=== PATIENT | male | born 1955 | race Caucasian/White ===

== ENCOUNTER 2017-01-17 10:07 | Inpatient (IN) | payer OTHER ==
[~2017-01-17] VITALS: Ht 175.3 cm; Wt 98.9 kg
[2017-01-17] VITALS (7 sets, daily range): BP systolic 96–131; BP diastolic 54–78
--- NOTE | ~2017-01-17 | EKG ---
[place], [place] ELECTROCARDIOGRAM REPORT NAME: TAMMY MYLES UNIT #: [id number] ROOM: 409 DOCTOR: MORALES HERNÁNDEZ MD BIRTHDATE: [birth year] DOS: 01/17/2017 TIME: 10:13 hours. Normal sinus rhythm at 79 beats per minute. The tracing is normal. No previous tracing is available for comparison. MORALES HERNÁNDEZ MD CM:EKGRPT:ELECTROCARDIOGRAM REPORT [id number] MORALES HERNÁNDEZ MD
--- NOTE | ~2017-01-17 | WRIGHTHP ---
[place], [place] PATIENT HISTORY AND PHYSICAL EXAM NAME: TAMMY MYLES [facility] #: [id number] UNIT #: [id number] ROOM: 409 DOCTOR: JOHN BEAVER MD BIRTHDATE: [birth year] DOS: 01/17/2017 HISTORY OF PRESENT ILLNESS: The patient is a 61-year-old gentleman with a past medical history of: 1. Coronary artery disease and a heart catheterization [address] Holman. 2. History of alcohol dependence, stopped 28 years back. 3. History of mixed hyperlipidemia. 4. Nicotine smoke dependence. 5. History of peptic ulcer disease. 6. History of diverticulosis and diverticulitis. 7. History of COPD. 8. Benign essential hypertension. 9. Type 2 diabetes mellitus. 10. Blind in the right eye. 11. History of sleep apnea. 12. Major depression, chronic, recurrent, minor. 13. GERD and esophagitis. The patient presented to [facility] Emergency Department with complaints of left-sided chest pains and some precordial discomfort. The patient's EKG showed no acute changes. There was no radiation of the pain. No nausea or diaphoresis. The patient was evaluated by his lease out man, Dr. Cortez, and he did not recommend any other intervention other than starting him on Imdur 30 mg a day. The patient is asymptomatic now. No GI or urinary symptoms. REVIEW OF SYSTEMS: LUNGS: With no increasing shortness of breath or wheezing. GASTROINTESTINAL: No nausea, vomiting, diarrhea or constipation. CARDIOVASCULAR: Left-sided chest pain, which has resolved. SOCIAL HISTORY: . Smokes cigarettes, 1 pack of cigarettes a day. Denies any alcohol or drug abuse. FAMILY HISTORY: Noncontributory. MEDICATIONS: Hydrochlorothiazide-lisinopril, Zoloft, aspirin, omeprazole, ropinirole, metoprolol, Lipitor, Dulera, tramadol and metformin. PHYSICAL EXAMINATION: GENERAL: Alert, oriented x 3, in no visible distress. HEENT AND NECK: Right eye blindness. Oral mucosa is moist and clean. No obvious facial weakness. Neck is supple without any lymphadenopathy. No thyromegaly. No JVD. No carotid arterial bruits. LUNGS: Clear to auscultation. No wheezing. No rhonchi. CARDIOVASCULAR SYSTEM: Heart rate is regular in rate and rhythm. S1 and S2 normally audible. No significant murmur or any other abnormal cardiac sounds. ABDOMEN: Soft, nontender. No obvious organomegaly. Bowel sounds are present. [place], [place] PATIENT HISTORY AND PHYSICAL EXAM NAME: TAMMY MYLES UNIT #: [id number] ROOM: 409 DOCTOR: JOHN BEAVER MD BIRTHDATE: [birth year] No obvious herniation. EXTREMITIES: Without significant cyanosis or edema. Warm to touch. CENTRAL NERVOUS SYSTEM: Alert and oriented x 3. Cranial nerves II-XII are intact. Speech is normal. The patient is able to move all extremities. Normal muscle strength. Deep tendon reflexes are equal on both sides. Plantars were downgoing. IMPRESSION: 1. The patient with left-sided chest pain from uncertain etiology. The patient just had a heart catheterization by Dr. Holman [address] Cortez and Dr. Holman have cleared him for discharge on Imdur, which was added to the treatment. I will see him back in the office on Sunday and he has been asked to follow up with his lease out man within a few weeks. The patient is asymptomatic now and his cardiac enzymes were negative. No more chest pains. 2. Nicotine smoke dependence. The patient has been encouraged to stop smoking cigarettes. 3. Benign essential hypertension with controlled blood pressures. 4. Type 2 diabetes mellitus. Blood sugar was elevated to 310, but will be checked and controlled as an outpatient. I will keep him on metformin. 5. Elevated BUN and creatinine to 22 and 1.4 has normalized with hydration after admission. 6. Centrilobular emphysema with chronic shortness of breath, stable. The patient is on bronchodilators. JOHN BEAVER MD CM:HISPHYS:PATIENT HISTORY AND PHYSICAL EXAMINATION [id number] JOHN BEAVER MD 01/19/17 0037 interface
--- NOTE | ~2017-01-17 | CON ---
[place], [place] REPORT OF CONSULTATION [id number] UNIT #: [id number] ROOM: 409 DO[facility] BIR[facility] [birth year] DOS: 01/18/2017 I am covering for Dr. Holman. Patient admitted with left-sided chest discomfort. The patient took 1 nitroglycerin with minimal relief and got admitted. HISTORY OF PRESENT ILLNESS: The patient is a 61-year-old gentleman with a known history of recent stenting about 5 weeks ago, admitted with left-sided precordial chest discomfort. No acute EKG changes, suggestion of myocardial injury or infarction. The patient took 1 nitroglycerin with mild relief. He denies any radiation to his back, jaw or arms. PAST MEDICAL HISTORY: No nausea, no vomiting, no diarrhea. PAST MEDICAL HISTORY: Significant for coronary artery disease, recent stent placement, hypertension, hyperlipidemia and diabetes mellitus HOME MEDICATIONS: The patient is on aspirin, metformin, omeprazole, Zoloft, Brilinta, Lopressor, Lipitor, lisinopril. ALLERGIES: PREDNISONE, BEE STINGS. SOCIAL HISTORY: He quit smoking about 4 weeks ago. FAMILY HISTORY: Positive for coronary artery disease. REVIEW OF SYSTEMS: As per HPI. Right now, he denies any chest discomfort, no shortness of breath. No nausea, no vomiting, no GI or issues. No neurological issues. No endocrine issues. No psychological issues. Skin is normal. PHYSICAL EXAMINATION: GENERAL: Alert, oriented x3. HEENT: Unremarkable. NECK: Supple, no JVD, no thyromegaly, no lymphadenopathy. LUNGS: Clear to auscultation and percussion. HEART: Heart sounds are regular. No murmur, no rub. ABDOMEN: Soft, nontender. NEUROLOGICAL: Stable. LABORATORY DATA: Creatinine is 1.4: Electrolytes are normal. Hemoglobin and hematocrit is normal. Chest x-ray is normal. EKG: Sinus rhythm, right bundle branch block with small Q-waves in the inferior leads. No acute EKG changes, compared to previous EKG, no new changes. IMPRESSION: The patient with a recent stent, hypertension, hyperlipidemia, diabetes mellitus. Cardiac enzymes have been negative. RECOMMENDATIONS: Continue the present medication, add nitrates to the current regimen. If he still continues to have pain, add Ranexa. Discussed with Dr. [place], [place] REPORT OF CONSULTATION NAME: TAMMY MYLES UNIT #: [id number] ROOM: 409 DOCTOR: KATYA FONTANEZ MD BIRTHDATE: [birth year] [place] and we will follow up. KATYA FONTANEZ MD CM:CONSTR:REPORT OF CONSULTATION 0610 01/18/17 1133 interface
[~2017-01-17 10:07] MED LIST: ALBUTEROL0.09 MG/A2 IH; AMOXICILLIN500 MG PO; ANTIVERT25 MG PO; ASPIR 8181 MG PO; ASPIRIN81 M1 PO; ATIVAN0.5 MG PO; AUGMENTIN 875 M1 TAB PO; AUGMENTIN 875875 MG PO; BIOTENE PO; BP Medication; CENTRUM SAW PA160 MG PO; CHANTIX1 M1 PO; CIPRO500 MG PO; CIPROFLOXACIN500 MG PO; CORTISPORIN SUS10 ML OT; DAYPRO600 M1; DAYPRO600 M1 PO; DULE1ARO INH; FISH OIL 10001000 MG PO; FLAGYL500 MG PO; FLEXERIL10 MG PO; GINKO BILOBA60 MG PO; KEFLEX500 MG PO; LISINOPRIL5 MG PO; MEDROL DOSEPAK4 MG PO; METFORMIN500 MG PO; MOTRIN800 MG PO; Meclizine25 MG PO; NEXIUM40 MG PO; NORCO 325 MG-7.1 TAB PO; OMEPRAZOLE D/R20 MG PO; PERCOCET 325 MG1 TA5 PO; PREVACID30 MG PO; REQUIP0.5 MG PO; ROBAXIN500 MG PO; ROBAXIN750 MG; ROBAXIN750 MG PO; ROBITUSSIN AC 110 ML PO; TRAMADOL HCL50 MG PO; TRAMADOL50 MG PO; ULTRAM50 MG PO; VIBRAMYCIN100 MG PO; VICODIN 5/500 505 MG PO; VICODIN 500 MG-1 TAB PO; VICODIN ES 7501 TA1 PO; VICODIN ES 7501 TAB PO; VITAMIN D5000 I2 PO; ZESTORETIC 12.51 TAB PO; ZESTRIL5 MG PO; ZOFRAN4 MG PO; ZOLOFT50 MG PO; [UNRECOGNIZED DRUG - OTHER] PO
[2017-01-17] MEDS ORDERED: ZOLOFT50 MG PO (10:24)
[2017-01-17] MEDS ORDERED: Lopressor25 MG PO (10:25)
[2017-01-17] MEDS ORDERED: BRILINTA90 M1 PO (10:25)
[2017-01-17] MEDS ORDERED: LIPITOR20 MG PO (10:26)
[2017-01-17] MEDS ORDERED: VENTOLIN H0.09 MG/AC INH (10:28)
[2017-01-17 10:35] LABS: BASO % 0.4 % (0.0-1.0); EOS # 0.1 10*3/uL (0.0-0.4); EOS % 1.6 % (1.0-4.0); HEMATOCRIT 41.2 % (42.0-52.0); LYMPH % 21.6 % (27.0-41.0); MEAN CELL VOLUME 93.2 fl (80.0-94.0); MEAN CORPUSCULAR HGB 31.7 pg (27.0-31.0); MONO # 0.7 10*3/uL (0.1-1.0); MONO % 7.9 % (3.0-9.0); NEUT # 6.2 10*3/uL (2.3-7.9); NEUT % 68.2 % (47.0-73.0); PLATELET COUNT AUTOMATED 196 10*3/uL (130-400); RED BLOOD COUNT 4.42 10*6/uL (4.50-5.90); RED CELL DISTRI WIDTH 13.6 % (0-14.5)
[2017-01-17 10:51] LABS: BUN 22 mg/dl (7-24); CARBON DIOXIDE 23 mmol/L (21-32); CHLORIDE 100 mmol/L (98-107); EST GLOM FILT AFRICAN AMERICAN > 60 ml/min; GLUCOSE 310 mg/dL (65-99); POTASSIUM 4.3 mmol/L (3.5-5.1); SODIUM 137 mmol/L (136-145)
[2017-01-17 10:52] LABS: TROPONIN I < 0.015 ng/ml (<0.045)
[2017-01-17] MEDS ORDERED: FISH OIL1000 MG PO (14:27)
[2017-01-18] VITALS: BP 126/79
[2017-01-18 07:25] LABS: BUN 22 mg/dl (7-24); CARBON DIOXIDE 27 mmol/L (21-32); CHLORIDE 99 mmol/L (98-107); EST GLOM FILT AFRICAN AMERICAN > 60 ml/min; GLUCOSE 314 mg/dL (65-99); POTASSIUM 3.9 mmol/L (3.5-5.1); SODIUM 135 mmol/L (136-145)
[2017-01-18 08:00] VITALS: BP 116/66
[2017-01-18 12:00] VITALS: BP 136/73
[2017-01-18 16:00] VITALS: BP 108/66; BP 114/56; BP 94/52
[2017-01-18] MEDS ORDERED: IMDUR SA30 MG PO (17:00)
== END 2017-01-18 18:30 | disposition home or self-care (01) | DRG 206 ==
LOC: ED 10:07 → EDHOLD 12:35 → 4E 13:09
PROVIDERS: Emergency Medicine; Internal Medicine
DX: M94.0 Chondrocostal junction syndrome [Tietze] (principal); J43.2 Centrilobular emphysema; I10 Essential (primary) hypertension; E78.2 Mixed hyperlipidemia; E11.9 Type 2 diabetes mellitus without complications; H54.41 Blindness, right eye, normal vision left eye; F32.9 Major depressive disorder, single episode, unspecified; K21.9 Gastro-esophageal reflux disease without esophagitis; F17.210 Nicotine dependence, cigarettes, uncomplicated; Z87.828 Personal history of other (healed) physical injury and trauma; Z88.8 Allergy status to other drugs, medicaments and biological substances; Z91.030 Bee allergy status; Z82.49 Family history of ischemic heart disease and other diseases of the circulatory system; Z83.3 Family history of diabetes mellitus; Z82.3 Family history of stroke; Z87.11 Personal history of peptic ulcer disease

== ENCOUNTER 2017-01-22 23:29 | Inpatient (IN) | payer OTHER ==
[~2017-01-22] VITALS: Ht 175.2 cm; Wt 96.7 kg
--- NOTE | ~2017-01-22 | CON ---
[place], [place] REPORT OF CONSULTATION NAME: TAMMY MYLES UNIT #: [id number] ROOM: 402 DOCTOR: KATYA FONTANEZ MD BIRTHDATE: [birth year] DOS: 01/23/2017 HISTORY OF PRESENT ILLNESS: The patient admitted with chest discomfort, 61-year-old gentleman who came to the Emergency Room with chest discomfort. This pain started last evening about 5:00 p.m. sitting upon his computer. He states that his chest pain radiating down the left arm. No acute EKG changes suggestion of myocardial injury or infarction. 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 The patient has not taken Brilinta since yesterday night. PAST MEDICAL HISTORY: Significant for hypertension, hyperlipidemia, ____, multiple abrasions, multiple contusions, orthostatic hypotension. PAST SURGICAL HISTORY: Back surgery, also had a stent placement in 11/2016, positive stress test. MEDICATIONS: The patient is on aspirin, metformin, lisinopril, metoprolol, ____ inhaler. FAMILY HISTORY: Hypertension, coronary artery disease, diabetes and CVA. REVIEW OF SYSTEMS: CONSTITUTIONAL: No fever, no chills. HEENT: No visual disturbances or hearing problems. CARDIOVASCULAR: Positive for chest pain. GASTROINTESTINAL: No nausea, no vomiting. GENITOURINARY SYSTEM: No dysuria, hematuria. NEUROLOGIC: No syncope. ENDOCRINE: Intact. SKIN: Normal. All other review of systems are negative. PHYSICAL EXAMINATION: VITAL SIGNS: Blood pressure is 120/70. The patient is in sinus rhythm. NECK: Supple, no JVD. LUNGS: Diminished breath sounds. HEART: Sounds regular. ABDOMEN: Soft, nontender. NEUROLOGICAL: Stable. LABORATORY DATA: Hemoglobin 13 and hematocrit 40.8, platelet count within normal limits. IMPRESSION: The patient with stent placement, chest pain, hypertension, hyperlipidemia. Try to obtain the recent catheterization report. Continue with other medications and we will follow up. [place], [place] REPORT OF CONSULTATION NAME: TAMMY MYLES UNIT #: [id number] ROOM: 402 DOCTOR: KATYA FONTANEZ MD BIRTHDATE: [birth year] KATYA FONTANEZ MD CM:CONSTR:REPORT OF CONSULTATION 01/23/17 0837 interface
--- NOTE | ~2017-01-22 | WRIGHTHP ---
[place], [place] PATIENT HISTORY AND PHYSICAL EXAM NAME: [facility]LES [id number] UNIT #: [id number] ROOM: 402 DOCTOR: ACACIA GILMORE MD BIRTHDATE: [birth year] DOS: 01/23/2017 HISTORY OF PRESENT ILLNESS: The patient is a 61-year-old. The patient is very well known to us. The patient comes in with complaints of chest pain. The patient was admitted here in January 17, 2017, was seen by Dr. Cortez and discharged to home with complaints of at that time also he presented with chest pain. The patient went home, continued to have chest pain, so he came back in. He denies having any fever, any chills, any abdominal pain, any nausea, or emesis. On close questioning, the patient states that he has not taken his Brilinta for the last few days, because he ran out of samples, could not get it refilled because insurance would not approve it and he did not get any other medicines to cover for it. He denies having any fever, any chills. PAST MEDICAL HISTORY: Significant for, 1. Coronary artery disease with cardiac cath in December of 2016 with 2 stents placement. 2. Benign hypertension. 3. Mixed hyperlipidemia. 4. COPD with continued nicotine abuse. MEDICATIONS: That the patient is on currently are Brilinta 90 mg twice a day, Dulera, breathing treatments, aspirin, atorvastatin, vitamin D, lisinopril, hydrochlorothiazide, meclizine, metformin, metoprolol, omeprazole, Requip, sertraline, tramadol. SOCIAL HISTORY: Smoker of about half to one pack of cigarettes, denies using any alcohol. PHYSICAL EXAMINATION: GENERAL: He is awake, alert and oriented. VITAL SIGNS: Graphic trend shows a pressure 100/60, pulse of 96, respirations 20, temperature 98.1. LUNGS: Diminished breath sounds. No wheezes, rales or rhonchi heard. HEART: Regular. ABDOMEN: Obese, soft, nontender. EXTREMITIES: Without any edema. LABORATORY DATA: EKG showed sinus, no ST-T wave changes were seen. ASSESSMENT AND PLAN: 1. The patient who presents with chest pain. He had rule out PR protocol ordered and so far 3 sets of enzymes done have come back negative. The patient does not have any complaints. He is seen by Cardiology and is cleared for discharge. 2. Coronary artery disease, status post stent placement. The patient is advised that he cannot go without taking his Brilinta, so since it is too expensive and insurance is not covering for it, we will switch to Plavix and aspirin. I did speak to Dr. Holman before doing that and he was okay with it. 3. Benign hypertension, controlled. 4. Gastroesophageal reflux disease since he is on agents, the patient [place], [place] PATIENT HISTORY AND PHYSICAL EXAM NAME: TAMMY MYLES UNIT #: [id number] ROOM: 402 DOCTOR: ACACIA GILMORE MD BIRTHDATE: [birth year] will come off the omeprazole, instead go on Zantac, prescription will be sent to the pharmacy. Encouraged to quit smoking. ACACIA GILMORE MD CM:HISPHYS:PATIENT HISTORY AND PHYSICAL EXAMINATION 9 ACACIA GILMORE MD 01/23/17929 interface
[~2017-01-22 23:29] MED LIST changes: +BRILINTA90 M1 PO; +FISH OIL1000 MG PO; +IMDUR SA30 MG PO; +LIPITOR20 MG PO; +Lopressor25 MG PO; +VENTOLIN H0.09 MG/AC INH
[2017-01-22 23:41] VITALS: BP 112/61
[2017-01-22 23:59] LABS: BASO # 0.1 10*3/uL (0.0-0.1); BASO % 0.5 % (0.0-1.0); EOS # 0.1 10*3/uL (0.0-0.4); EOS % 0.9 % (1.0-4.0); HEMATOCRIT 40.8 % (42.0-52.0); HEMOGLOBIN 13.9 g/dl (14.0-18.0); LYMPH # 1.7 10*3/uL (1.3-4.4); LYMPH % 14.8 % (27.0-41.0); MEAN CELL VOLUME 92.1 fl (80.0-94.0); MEAN CORPUSCULAR HGB 31.4 pg (27.0-31.0); MEAN CORPUSCULAR HGB CONC 34.1 g/dl (33.0-37.0); MEAN PLATELET VOLUME 10.5 fl (9.6-12.3); MONO # 0.9 10*3/uL (0.1-1.0); MONO % 7.9 % (3.0-9.0); NEUT # 8.6 10*3/uL (2.3-7.9); NEUT % 75.5 % (47.0-73.0); PLATELET COUNT AUTOMATED 208 10*3/uL (130-400); RED BLOOD COUNT 4.43 10*6/uL (4.50-5.90); RED CELL DISTRI WIDTH 13.7 % (0-14.5); WHITE BLOOD COUNT 11.4 10*3/uL (4.8-10.8)
[2017-01-23] VITALS (8 sets, daily range): BP systolic 100–127; BP diastolic 60–76
[2017-01-23 00:06] LABS: PROTHROMBIN TIME 10.2 SECONDS (9.0-12.4)
[2017-01-23 00:15] LABS: ALBUMIN 3.5 gm/dl (3.1-4.5); ALKALINE PHOSPHATASE 90 U/L (45-117); BILIRUBIN, TOTAL 0.3 mg/dl (0.2-1.0); BUN 17 mg/dl (7-24); CARBON DIOXIDE 26 mmol/L (21-32); CHLORIDE 100 mmol/L (98-107); CKMB 0.9 ng/ml (0.5-3.6); CPK 161 U/L (39-308); EST GLOM FILT AFRICAN AMERICAN > 60 ml/min; GLUCOSE 238 mg/dL (65-99); POTASSIUM 3.9 mmol/L (3.5-5.1); SGOT/AST 15 IU/L (3-35); SGPT/ALT 42 U/L (12-78); SODIUM 138 mmol/L (136-145); TOTAL PROTEIN 6.9 gm/dL (6.4-8.2); TROPONIN I < 0.015 ng/ml (<0.045)
[2017-01-23 06:12] LABS: CKMB 0.6 ng/ml (0.5-3.6); CPK 139 U/L (39-308)
[2017-01-23 06:13] LABS: TROPONIN I < 0.015 ng/ml (<0.045)
[2017-01-23] MEDS ORDERED: PLAVIX75 M1 PO (08:36)
[2017-01-23] MEDS ORDERED: ZANTAC 150150 MG PO (08:38)
== END 2017-01-23 09:41 | disposition home or self-care (01) | DRG 392 ==
LOC: ED 23:29 → EDHOLD 01-23 01:25 → 4E 01-23 01:25
PROVIDERS: Emergency Medicine; Internal Medicine
DX: K21.9 Gastro-esophageal reflux disease without esophagitis (principal); I10 Essential (primary) hypertension; I25.10 Atherosclerotic heart disease of native coronary artery without angina pectoris; E78.2 Mixed hyperlipidemia; J44.9 Chronic obstructive pulmonary disease, unspecified; Z95.5 Presence of coronary angioplasty implant and graft; F17.210 Nicotine dependence, cigarettes, uncomplicated; Z82.3 Family history of stroke; Z83.3 Family history of diabetes mellitus; Z82.49 Family history of ischemic heart disease and other diseases of the circulatory system

== ENCOUNTER → 2017-03-08 | Outpatient (CLI) | payer OTHER ==
[~2017-03-08] MED LIST changes: +PLAVIX75 M1 PO; +ZANTAC 150150 MG PO
[2017-03-08 11:29] LABS: EST GLOM FILT AFRICAN AMERICAN > 60 ml/min
== END | disposition home or self-care (01) ==
LOC: CT 11:00
PROVIDERS: Internal Medicine
DX: J32.0 Chronic maxillary sinusitis (principal); R09.81 Nasal congestion; J34.89 Other specified disorders of nose and nasal sinuses; Z85.828 Personal history of other malignant neoplasm of skin

== ENCOUNTER → 2017-03-09 | Outpatient (CLI) | payer OTHER | END | disposition home or self-care (01) | LOC: MRI 09:00 | DX: I67.82 Cerebral ischemia (principal) ==

== ENCOUNTER 2017-06-04 13:56 | Inpatient (IN) | payer OTHER ==
[~2017-06-04] VITALS: Ht 170.2 cm; Wt 95.3 kg
[2017-06-04] VITALS (11 sets, daily range): BP systolic 86–137; BP diastolic 24–79
--- NOTE | ~2017-06-04 | CON ---
[place], [place] REPORT OF CONSULTATION NAME: [facility]LES [id number] UNIT #: [id number] ROOM: 421 DOCTOR: CONSTANTINO FONTANEZ MDHISH BIRTHDATE: [birth year] DOS: 06/05/2017 HISTORY OF PRESENT ILLNESS: A 61-year-old gentleman, apparently with a known history of coronary artery stent placement in November, had a stress test in Dr. Holman's office, seen in March basically was reported normal. Readmitted with some atypical chest discomfort. This was more in the epigastric region. The patient also has peptic ulcer disease. No acute EKG changes of myocardial injury or infarction. Two of the cardiac enzymes have been negative. Right now, he is chest pain free. He denies any shortness of breath or palpitations. PAST MEDICAL HISTORY: Significant for coronary artery disease, hypertension, hyperlipidemia, and diabetes mellitus. PAST SURGICAL HISTORY: The patient has a history of facial lacerations, multiple ablations, history of stent placement as mentioned, and right eye surgery. MEDICATIONS: The patient is on metformin, lisinopril and hydrochlorothiazide, metoprolol, atorvastatin, albuterol, and cholecalciferol. SOCIAL HISTORY: The patient continues to smoke. Denies any alcohol abuse. FAMILY HISTORY: Positive for coronary artery disease, diabetes, and hypertension. REVIEW OF SYSTEMS: CONSTITUTIONAL: No fever, no chills. HEENT: No visual disturbances or hearing problems. CARDIOVASCULAR: As mentioned in HPI. GASTROINTESTINAL: No nausea. No vomiting. GENITOURINARY: No dysuria or hematuria. NEUROLOGIC: Stable. No syncope. LABORATORY DATA: Electrolytes are normal. Creatinine is 1.3. Troponins have been negative. Hemoglobin and hematocrit 15.2 and 45.3. EKG; sinus rhythm with nonspecific ST and T changes. IMPRESSION: The patient with hypertension, hyperlipidemia, coronary artery stent placement; recent stress test was normal. RECOMMENDATIONS: Make sure the patient is on antilipid agents, particularly the clopidogrel, for some reason it is not in his chart of his home medications. Continue the atorvastatin, beta blockers, lipid-lowering agents, metformin, and aspirin. Compliance is a big issue. If he continues to have recurrent symptoms or any of the enzymes are positive, we have no other choice, as I do not see him taking the Plavix, he might need a heart catheterization. Thank you for consulting us and I am seeing this on behalf of Dr. Holman. [place], [place] REPORT OF CONSULTATION NAME: TAMMY MYLES UNIT #: [id number] ROOM: 421 DOCTOR: KATYA FONTANEZ MD BIRTHDATE: [birth year] KATYA FONTANEZ MD CM:CONSTR:REPORT OF CONSULTATION 0754 06/08/17 0701 interface
--- NOTE | ~2017-06-04 | WRIGHTHP ---
[place], [place] PATIENT HISTORY AND PHYSICAL EXAM NAME: TAMMY MYLES [facility] #: [id number] UNIT #: [id number] ROOM: 421 DOCTOR: JOHN BEAVER MD BIRTHDATE: [birth year] DOS: 06/04/2017 HISTORY OF PRESENT ILLNESS: The patient is a 61-year-old gentleman with a past medical history of: 1. Coronary artery disease and a cardiac stress test done [place] by Dr. Holman in 03/2017, according to the patient, which was normal. 2. History of alcohol dependence, stopped 28 years back. 3. Mixed hyperlipidemia, nicotine smoke dependence. 4. Peptic ulcer disease. 5. Diverticulosis and diverticulitis. 6. Chronic obstructive pulmonary disease. 7. Benign essential hypertension. 8. Type 2 diabetes mellitus. 9. Blindness in the right eye. 10. History of sleep apnea. 11. History of major depression, minor. 12. Gastroesophageal reflux disease. 13. Esophagitis. The patient presented to the Emergency Department at [facility] with complaints of sharp midsternal chest pains for 3 days, radiating into the back, some sweating and headache. The patient had taken nitroglycerin without headache. The patient has been taking his aspirin. The patient was treated in the emergency department and recommended for admission and further management because of his history of coronary artery disease. After admission, the patient was seen by Dr. Holman, his citrus fruit packer and no further cardiac stress testing was recommended because according to the patient, he already had a cardiac stress test in March in [place] performed by Dr. Holman, which was normal. The patient says his blood pressures have been staying on the lower side, but he is asymptomatic. No dizziness, no fainting episode. REVIEW OF SYSTEMS: LUNGS: No increasing shortness of breath or wheezing. GASTROINTESTINAL: No nausea, vomiting, diarrhea, constipation. CARDIOVASCULAR: Recurrent chest pains, no palpitations. FAMILY HISTORY: Noncontributory. HOME MEDICATIONS: Lisinopril, Lipitor, meclizine, Plavix, aspirin, metformin, tramadol, Cymbalta, Pepcid, ropinirole, metoprolol, Dulera, albuterol, nitroglycerin. ALLERGIES: Known allergies to BEE STINGS, PREDNISONE. PHYSICAL EXAMINATION: GENERAL: Alert and oriented x 3, in no visible distress. HEENT AND NECK: Blindness in the right eye. Extraocular movements are intact. Sclerae are anicteric. Oral mucosa is moist and clean. No obvious facial weakness. Neck is supple without any lymphadenopathy. No thyromegaly. No JVD. No carotid arterial bruits. LUNGS: Clear to auscultation. No wheezing. No rhonchi. [place], [place] PATIENT HISTORY AND PHYSICAL EXAM [id number] UNIT #: [id number] ROOM: 421 DOCTOR: JOHN BEAVER MD BIRTHDATE: [birth year] CARDIOVASCULAR SYSTEM: Heart rate is regular in rate and rhythm. S1 and S2 normally audible. No significant murmur or any other abnormal cardiac sounds. ABDOMEN: Soft, nontender. No obvious organomegaly. Bowel sounds are present. No obvious herniation. EXTREMITIES: Without significant cyanosis or edema. Warm to touch. CENTRAL NERVOUS SYSTEM: Alert and oriented x 3. Cranial nerves II-XII are intact. Speech is normal. The patient is able to move all extremities. Normal muscle strength. Deep tendon reflexes are equal on both sides. Plantars were downgoing. LABORATORY DATA: The patient's cardiac enzymes x 4 were all negative. PT, PTT were baseline. CBC was normal. Chest x-ray without any acute abnormality. IMPRESSION: 1. Musculoskeletal chest pains have resolved. The patient apparently had a cardiac stent placement in November and a normal cardiac stress test in March. The patient has been seen by citrus fruit packer and no further workup recommended. The patient will be discharged to home to follow up with the office tomorrow. 2. Benign essential hypertension with at least recent hypotensive episode during this hospital admissions. Most of the hypotensive readings have been from automatic blood pressure cuff. I checked the blood pressure myself today and it was 115 systolic over 70 diastolic. Blood pressure is staying low normal but he is completely asymptomatic. I will discontinue his lisinopril and discharge him today and check his blood pressure again in the office tomorrow. 3. Type 2 diabetes mellitus. Blood sugars are monitored and treated. 4. Diabetic nephropathy with a GFR of more than 60. 5. Mixed hyperlipidemia, followed and treated. 6. Nicotine smoke dependence. The patient encouraged to stay off cigarettes. LABORATORY DATA: BUN and creatinine 23 and 1.3. Normal serum electrolytes except for blood sugar elevated at 286. DISCHARGE MANAGEMENT: Albuterol metered dose inhaler 2 puffs q.i.d. p.r.n., Dulera 2 inhalations twice a day, metoprolol 25 mg b.i.d. propranolol 0.5 mg at bedtime, famotidine 20 mg b.i.d., Cymbalta 20 mg at bedtime, tramadol 50 mg q.i.d. p.r.n., aspirin 81 mg a day, Plavix 75 mg daily, lisinopril 20 mg a day, meclizine 25 mg a day, Lipitor 20 mg a day. Follow up at the office with me tomorrow and get clearance from cardiology prior to discharge to home today. [place], [place] PATIENT HISTORY AND PHYSICAL EXAM NAME: TAMMY MYLES UNIT #: [id number] ROOM: 421 DOCTOR: SD PARKER,JOHN Ruano BIRTHDATE: [birth year] JOHN BEAVER MD CM:HISPHYS:PATIENT HISTORY AND PHYSICAL EXAMINATION 01 23 JOHN BEAVER MD 06/05/171823 interface
--- NOTE | ~2017-06-04 | EKG ---
[place], [place] ELECTROCARDIOGRAM REPORT NAME: TAMYM MYLES UNIT #: [id number] ROOM: 421 DOCTOR: MORALES HERNÁNDEZ MD BIRTHDATE: [birth year] DOS: 06/04/2017 TIME: 1432 hours. Normal sinus rhythm at 79 beats per minute. The tracing is within normal limits. No previous tracing is available for comparison. MORALES HERNÁNDEZ MD CM:EKGRPT:ELECTROCARDIOGRAM REPORT 2237 MORALES HERNÁNDEZ MD
[2017-06-04 14:13] LABS: BASO # 0.1 10*3/uL (0.0-0.1); BASO % 0.6 % (0.0-1.0); EOS # 0.1 10*3/uL (0.0-0.4); EOS % 1.1 % (1.0-4.0); HEMATOCRIT 45.3 % (42.0-52.0); HEMOGLOBIN 15.2 g/dl (14.0-18.0); LYMPH # 2.1 10*3/uL (1.3-4.4); LYMPH % 25.1 % (27.0-41.0); MEAN CELL VOLUME 97.4 fl (80.0-94.0); MEAN CORPUSCULAR HGB 32.7 pg (27.0-31.0); MEAN CORPUSCULAR HGB CONC 33.6 g/dl (33.0-37.0); MEAN PLATELET VOLUME 10.6 fl (9.6-12.3); MONO # 0.5 10*3/uL (0.1-1.0); MONO % 6.4 % (3.0-9.0); NEUT # 5.6 10*3/uL (2.3-7.9); NEUT % 66.6 % (47.0-73.0); PLATELET COUNT AUTOMATED 175 10*3/uL (130-400); RED BLOOD COUNT 4.65 10*6/uL (4.50-5.90); RED CELL DISTRI WIDTH 13.5 % (0-14.5); WHITE BLOOD COUNT 8.3 10*3/uL (4.8-10.8)
[2017-06-04 14:24] LABS: PROTHROMBIN TIME 10.1 SECONDS (9.0-12.4)
[2017-06-04 14:30] LABS: ALBUMIN 3.8 gm/dl (3.1-4.5); ALKALINE PHOSPHATASE 82 U/L (45-117); BILIRUBIN, TOTAL 0.3 mg/dl (0.2-1.0); BUN 23 mg/dl (7-24); CARBON DIOXIDE 27 mmol/L (21-32); CHLORIDE 96 mmol/L (98-107); EST GLOM FILT AFRICAN AMERICAN > 60 ml/min; GLUCOSE 286 mg/dL (65-99); MAGNESIUM 1.4 mg/dL (1.5-2.1); POTASSIUM 3.5 mmol/L (3.5-5.1); SGOT/AST 20 IU/L (3-35); SGPT/ALT 31 U/L (12-78); SODIUM 134 mmol/L (136-145); TOTAL PROTEIN 7.4 gm/dL (6.4-8.2)
[2017-06-04 14:34] LABS: TROPONIN I < 0.015 ng/ml (<0.045)
[2017-06-04] MEDS ORDERED: CYMBALTA60 MG PO (20:54)
[2017-06-05] VITALS: BP 95/48
[2017-06-05 04:00] VITALS: BP 104/66
[2017-06-05 08:00] VITALS: BP 140/82
[2017-06-05 12:00] VITALS: BP 124/73
== END 2017-06-05 17:05 | disposition home or self-care (01) | DRG 313 ==
LOC: ED 13:56 → 4E 19:24 → EDHOLD 19:24 → 4E 19:33
PROVIDERS: Emergency Medicine
DX: R07.89 Other chest pain (principal); I25.10 Atherosclerotic heart disease of native coronary artery without angina pectoris; E11.40 Type 2 diabetes mellitus with diabetic neuropathy, unspecified; I95.9 Hypotension, unspecified; E78.2 Mixed hyperlipidemia; F17.210 Nicotine dependence, cigarettes, uncomplicated; K57.90 Diverticulosis of intestine, part unspecified, without perforation or abscess without bleeding; J44.9 Chronic obstructive pulmonary disease, unspecified; I10 Essential (primary) hypertension; H54.41 Blindness, right eye, normal vision left eye; G47.30 Sleep apnea, unspecified; Z87.11 Personal history of peptic ulcer disease; Z79.84 Long term (current) use of oral hypoglycemic drugs; Z79.82 Long term (current) use of aspirin; Z79.899 Other long term (current) drug therapy; Z88.8 Allergy status to other drugs, medicaments and biological substances; Z91.030 Bee allergy status; Z98.61 Coronary angioplasty status; Z82.49 Family history of ischemic heart disease and other diseases of the circulatory system; Z83.3 Family history of diabetes mellitus; Z82.3 Family history of stroke; K21.0 Gastro-esophageal reflux disease with esophagitis

== ENCOUNTER 2017-06-06 12:35 | Emergency (ER) | payer OTHER ==
[~2017-06-06] VITALS: Ht 170.1 cm; Wt 95.3 kg
[~2017-06-06 12:35] MED LIST changes: +CYMBALTA60 MG PO
[2017-06-06 12:58] LABS: BASO % 0.4 % (0.0-1.0); EOS # 0.1 10*3/uL (0.0-0.4); EOS % 0.9 % (1.0-4.0); HEMATOCRIT 46.4 % (42.0-52.0); HEMOGLOBIN 15.1 g/dl (14.0-18.0); LYMPH # 2.5 10*3/uL (1.3-4.4); LYMPH % 27.3 % (27.0-41.0); MEAN CELL VOLUME 99.6 fl (80.0-94.0); MEAN CORPUSCULAR HGB 32.4 pg (27.0-31.0); MEAN CORPUSCULAR HGB CONC 32.5 g/dl (33.0-37.0); MEAN PLATELET VOLUME 10.6 fl (9.6-12.3); MONO # 0.6 10*3/uL (0.1-1.0); MONO % 6.6 % (3.0-9.0); NEUT # 5.9 10*3/uL (2.3-7.9); NEUT % 64.5 % (47.0-73.0); PLATELET COUNT AUTOMATED 180 10*3/uL (130-400); RED BLOOD COUNT 4.66 10*6/uL (4.50-5.90); RED CELL DISTRI WIDTH 13.6 % (0-14.5); WHITE BLOOD COUNT 9.1 10*3/uL (4.8-10.8)
[2017-06-06 13:07] LABS: PROTHROMBIN TIME 10.2 SECONDS (9.0-12.4)
[2017-06-06 13:26] LABS: ALBUMIN 3.6 gm/dl (3.1-4.5); ALKALINE PHOSPHATASE 80 U/L (45-117); BILIRUBIN, TOTAL 0.3 mg/dl (0.2-1.0); BUN 14 mg/dl (7-24); CARBON DIOXIDE 29 mmol/L (21-32); CHLORIDE 102 mmol/L (98-107); EST GLOM FILT AFRICAN AMERICAN > 60 ml/min; GLUCOSE 184 mg/dL (65-99); MAGNESIUM 1.6 mg/dL (1.5-2.1); POTASSIUM 4.3 mmol/L (3.5-5.1); SGOT/AST 20 IU/L (3-35); SGPT/ALT 33 U/L (12-78); SODIUM 139 mmol/L (136-145)
[2017-06-06 13:27] LABS: TROPONIN I < 0.015 ng/ml (<0.045)
[2017-06-06 14:57] VITALS: BP 103/67
== END 2017-06-06 14:40 | disposition home or self-care (01) ==
LOC: ED 12:35
PROVIDERS: Emergency Medicine
DX: R42 Dizziness and giddiness (principal); R07.89 Other chest pain; R06.02 Shortness of breath; R53.1 Weakness; J44.9 Chronic obstructive pulmonary disease, unspecified; F17.210 Nicotine dependence, cigarettes, uncomplicated; Z91.030 Bee allergy status; Z88.8 Allergy status to other drugs, medicaments and biological substances; Z79.82 Long term (current) use of aspirin; Z79.899 Other long term (current) drug therapy

== ENCOUNTER → 2017-08-15 | Outpatient (CLI) | payer OTHER ==
[2017-08-15 11:40] LABS: BASO % 0.5 % (0.0-1.0); EOS # 0.2 10*3/uL (0.0-0.4); HEMOGLOBIN 14.9 g/dl (14.0-18.0); LYMPH # 2.6 10*3/uL (1.3-4.4); LYMPH % 30.3 % (27.0-41.0); MEAN CELL VOLUME 99.3 fl (80.0-94.0); MEAN CORPUSCULAR HGB 32.9 pg (27.0-31.0); MEAN CORPUSCULAR HGB CONC 33.1 g/dl (33.0-37.0); MEAN PLATELET VOLUME 10.7 fl (9.6-12.3); MONO # 0.7 10*3/uL (0.1-1.0); MONO % 8.5 % (3.0-9.0); NEUT # 5.1 10*3/uL (2.3-7.9); NEUT % 58.4 % (47.0-73.0); PLATELET COUNT AUTOMATED 190 10*3/uL (130-400); RED BLOOD COUNT 4.53 10*6/uL (4.50-5.90); RED CELL DISTRI WIDTH 15.1 % (0-14.5); RETICULOCYTE % 1.07 % (0.50-2.50); WHITE BLOOD COUNT 8.7 10*3/uL (4.8-10.8)
[2017-08-15 12:10] LABS: ALBUMIN 3.6 gm/dl (3.1-4.5); ALKALINE PHOSPHATASE 84 U/L (45-117); BUN 20 mg/dl (7-24); CHLORIDE 101 mmol/L (98-107); CREATININE 1.21 mg/dL (0.70-1.30); IRON 64 ug/dL (65-175); MAGNESIUM 1.9 mg/dL (1.5-2.1); POTASSIUM 3.4 mmol/L (3.5-5.1); SGOT/AST 21 IU/L (3-35); SGPT/ALT 26 U/L (12-78); SODIUM 140 mmol/L (136-145); TOTAL IRON BINDING CAPACITY 337 ug/dl (250-450); TOTAL PROTEIN 7.4 gm/dL (6.4-8.2)
[2017-08-15 12:48] LABS: FERRITIN 31.7 ng/mL (22.0-322.0); PTH INTACT 53.1 pg/mL (14.0-72.0)
== END | disposition home or self-care (01) ==
LOC: LAB 11:15
PROVIDERS: Internal Medicine Nephrology
DX: M47.897 Other spondylosis, lumbosacral region (principal); M51.36 Other intervertebral disc degeneration, lumbar region; M48.061 Spinal stenosis, lumbar region without neurogenic claudication; M43.16 Spondylolisthesis, lumbar region; I12.9 Hypertensive chronic kidney disease with stage 1 through stage 4 chronic kidney disease, or unspecified chronic kidney disease; N18.3 Chronic kidney disease, stage 3 (moderate); E11.22 Type 2 diabetes mellitus with diabetic chronic kidney disease; E66.9 Obesity, unspecified; G47.33 Obstructive sleep apnea (adult) (pediatric); M96.1 Postlaminectomy syndrome, not elsewhere classified

== ENCOUNTER → 2017-09-21 | Outpatient (CLI) | payer OTHER | END | disposition home or self-care (01) | LOC: US 08:29 | DX: K76.0 Fatty (change of) liver, not elsewhere classified (principal); R16.0 Hepatomegaly, not elsewhere classified ==

== ENCOUNTER → 2017-09-24 | Outpatient (CLI) | payer OTHER | END | disposition home or self-care (01) | LOC: CT 09-21 08:32 | DX: J43.9 Emphysema, unspecified (principal); R91.8 Other nonspecific abnormal finding of lung field; J18.9 Pneumonia, unspecified organism ==

== ENCOUNTER → 2017-12-31 | Outpatient (CLI) | payer OTHER ==
[~2017-12-31] MED LIST changes: +PREDNISONE20 M1 PO
== END | disposition home or self-care (01) ==
LOC: RAD 16:16
DX: M54.2 Cervicalgia (principal); G89.29 Other chronic pain; R20.2 Paresthesia of skin; R51 Headache

== ENCOUNTER 2018-01-01 13:47 | Emergency (ER) | payer OTHER ==
[~2018-01-01] VITALS: Ht 175.2 cm; Wt 90.7 kg
[~2018-01-01 13:47] MED LIST changes: -PREDNISONE20 M1 PO
[2018-01-01 14:27] LABS: BASO % 0.7 % (0.0-1.0); EOS # 0.1 10*3/uL (0.0-0.4); EOS % 1.5 % (1.0-4.0); HEMATOCRIT 45.5 % (42.0-52.0); HEMOGLOBIN 15.4 g/dl (14.0-18.0); LYMPH # 1.7 10*3/uL (1.3-4.4); MEAN CELL VOLUME 95.8 fl (80.0-94.0); MEAN CORPUSCULAR HGB 32.4 pg (27.0-31.0); MEAN CORPUSCULAR HGB CONC 33.8 g/dl (33.0-37.0); MEAN PLATELET VOLUME 10.3 fl (9.6-12.3); MONO # 0.5 10*3/uL (0.1-1.0); MONO % 7.7 % (3.0-9.0); NEUT # 3.8 10*3/uL (2.3-7.9); NEUT % 61.9 % (47.0-73.0); PLATELET COUNT AUTOMATED 184 10*3/uL (130-400); RED BLOOD COUNT 4.75 10*6/uL (4.50-5.90); RED CELL DISTRI WIDTH 14.8 % (0-14.5); WHITE BLOOD COUNT 6.1 10*3/uL (4.8-10.8)
[2018-01-01 14:47] LABS: ALKALINE PHOSPHATASE 103 U/L (45-117); BUN 13 mg/dl (7-24); CHLORIDE 105 mmol/L (98-107); CREATININE 1.12 mg/dL (0.70-1.30); POTASSIUM 4.5 mmol/L (3.5-5.1); SGOT/AST 20 IU/L (3-35); SGPT/ALT 33 U/L (12-78); SODIUM 139 mmol/L (136-145); TOTAL PROTEIN 7.8 gm/dL (6.4-8.2)
[2018-01-01 17:41] VITALS: BP 129/70
[2018-01-01] MEDS ORDERED: VIBRAMYCIN100 MG PO (18:53)
[2018-01-01] MEDS ORDERED: PREDNISONE20 M1 PO (18:56)
== END 2018-01-01 20:32 | disposition home or self-care (01) ==
LOC: ED 13:47
PROVIDERS: Emergency Medicine
DX: J40 Bronchitis, not specified as acute or chronic (principal); J44.9 Chronic obstructive pulmonary disease, unspecified; F17.200 Nicotine dependence, unspecified, uncomplicated; Z91.030 Bee allergy status; Z88.8 Allergy status to other drugs, medicaments and biological substances; Z79.899 Other long term (current) drug therapy; Z79.82 Long term (current) use of aspirin

== ENCOUNTER → 2018-04-11 | Outpatient (CLI) | payer OTHER ==
[~2018-04-11] MED LIST changes: +CLOPIDOGREL75 MG PO; +CYCLOBENZAPRINE10 MG PO; +CYMBALTA20 M1 PO; +GLUCOPHAGE1000 MG PO; +ISOSORBIDE MONO60 MG PO; -METFORMIN500 MG PO; +PREDNISONE20 M1 PO; +PROVENTIL HFA6.7 GM INH; +RANITIDINE 7575 MG PO
== END | disposition home or self-care (01) ==
LOC: CT 09:52
DX: J43.9 Emphysema, unspecified (principal)

== ENCOUNTER → 2018-04-23 | Outpatient (CLI) | payer OTHER | END | disposition home or self-care (01) | LOC: RAD 17:08 | DX: M47.896 Other spondylosis, lumbar region (principal) ==

== ENCOUNTER 2018-04-29 12:32 | Inpatient (IN) | payer OTHER ==
[~2018-04-29] VITALS: Ht 175.2 cm; Wt 93.7 kg
[2018-04-29] VITALS (7 sets, daily range): BP systolic 87–129; BP diastolic 53–70
--- NOTE | ~2018-04-29 | EKG ---
[place], [place] ELECTROCARDIOGRAM REPORT NAME: TAMMY MYLES UNIT #: [id number] ROOM: 505 DOCTOR: MORALES HERNÁNDEZ MD BIRTHDATE: [birth year] DOS: 04/29/2018 TIME: 1835 hours. FINDINGS: 1. Sinus tachycardia at 103 beats per minute. 2. The tracing is normal. 3. No significant change from ECG done at 1541 hours of the same day. MORALES HERNÁNDEZ MD CM:EKGRPT:ELECTROCARDIOGRAM REPORT [id number] MORALES HERNÁNDEZ MD
--- NOTE | ~2018-04-29 | CON ---
[place], [place] REPORT OF CONSULTATION NAME: TAMMY MYLES UNIT #: [id number] ROOM: 505 DOCTOR: HUSEYIN PARKERKATYA BIRTHDATE: [birth year] DOS: 04/30/2018 I am covering for Dr. Holman. HISTORY OF PRESENT ILLNESS: The patient apparently admitted with some atypical chest discomfort. The patient was placed in the Emergency Room. The patient was found to be slightly hypotensive. The patient apparently was seen by PCP, thinks the patient was dehydrated. He developed some chest discomfort and the blood pressure was a little low. No acute EKG changes suggestive of myocardial injury or infarction. The patient tells me that he had a stress test done in [place] by Dr. Holman. He has history of coronary artery disease, stent placement. He has remained chest pain free since the hospital admission. No GI or issues. Hemodynamically stable. PAST MEDICAL HISTORY: Significant for depression, COPD, hypertension, coronary artery disease, stent placement, history of diabetes mellitus. FAMILY HISTORY: Positive for coronary artery disease. MEDICATIONS: Clopidogrel, Vibramycin, aspirin, metformin, meclizine, metoprolol, atorvastatin. ALLERGIES: UNKNOWN. REVIEW OF SYSTEMS: CONSTITUTIONAL: No fever, no chills. HEENT: No visual disturbance or hearing problems. CARDIOVASCULAR: As per HPI. GASTROINTESTINAL: No nausea, no vomiting. GENITOURINARY: No dysuria or hematuria. NEUROLOGIC: Stable. PHYSICAL EXAMINATION: GENERAL: The patient is alert and oriented x 3. HEENT: Unremarkable. NECK: Supple. No JVD. LUNGS: Clear. HEART: Sounds are regular. NEUROLOGIC: Stable. LABORATORY DATA: Hemoglobin 15, hematocrit 45.5, platelet count is normal. Electrolytes are within normal limits. Troponins have all been negative. EKG with normal sinus rhythm, probable old inferior infarct with small Q-waves. IMPRESSION: The patient with a known history of coronary artery disease, hypertension, previous stent placement, admitted with hypotension and atypical chest discomfort. Cardiac enzymes have all been negative. RECOMMENDATIONS: We will review the echocardiogram as ordered and monitor the blood pressure and heart rate closely. We will review the stress test done at a [place], [place] REPORT OF CONSULTATION NAME: TAMMY MYLES UNIT #: [id number] ROOM: 505 DOCTOR: HUSEYIN PARKER,KATYA BIRTHDATE: [birth year] different facility. If he has recurrent symptoms, consideration should be given to repeat a stress test. KATYA FONTANEZ MD CM:CONSTR:REPORT OF CONSULTATION 0743 05/08/18 0727 interface
--- NOTE | ~2018-04-29 | WRIGHTHP ---
[place], [place] PATIENT HISTORY AND PHYSICAL EXAM NAME: TAMMY MYLES [facility] #: [id number] UNIT #: [id number] ROOM: [facility] DOCTOR: ACACIA GILMORE MD BIRTHDATE: [birth year] DOS: 04/29/2018 HISTORY OF PRESENT ILLNESS: The patient is 62 years old. The patient was at a rehab, was getting exercise for his shoulder injury. While there, had some chest pain during exercise and was found to be hypotensive. The patient came to the office for an echocardiogram and told office staff about and was advised that the patient be seen in the Emergency Room since Dr. Casey was not available yesterday. The patient denies having any complaints after admission, came to the ER, had routine blood work ordered and showed some slight elevation in BUN and creatinine and so IV fluids were ordered and the patient is admitted. The patient does not have any complaints this morning either, feels pretty good. PAST MEDICAL HISTORY: Significant for: 1. Coronary artery disease. 2. Alcohol dependence. 3. Mixed hyperlipidemia. 4. Peptic ulcer disease. 5. Chronic obstructive lung disease. 6. Benign hypertension. 7. Type 2 diabetes mellitus. 8. History of sleep apnea. 9. Gastroesophageal reflux disease. MEDICATIONS: The patient is on are albuterol p.r.n., Dulera 200 twice a day, aspirin 81 mg daily, atorvastatin 20 daily, duloxetine 20 daily, cyclobenzaprine 10 t.i.d., isosorbide 60 daily, metformin 1000 b.i.d., meclizine 25 daily, metoprolol 25 b.i.d., ranitidine 75 b.i.d., Requip 0.5 at bedtime and tramadol 50 q.i.d. SOCIAL HISTORY: Smoker of about half pack of cigarettes a day and also has a problem with alcohol, he consumes it rather heavily. PHYSICAL EXAMINATION: GENERAL: He is awake and alert and oriented. VITAL SIGNS: Graphic trend shows a pressure of 132/70, pulse of 76. This morning when he came, blood pressure was only 90/60. Otherwise vital signs all within normal limits. LUNGS: Clear. HEART: Regular. ABDOMEN: Obese, soft, nontender. EXTREMITIES: Without any edema. ASSESSMENT AND PLAN: 1. Hypotension with prerenal azotemia from an acute kidney injury, possibly from dehydration. The patient is placed on intravenous fluids, antihypertensives were held this morning and troponins were all done, which were negative. 2. He is ruled out for myocardial infarction. Consultation with Dr. Cortez was obtained and this morning, I did speak to Dr. Cortez. The patient is stable and [place], [place] PATIENT HISTORY AND PHYSICAL EXAM NAME: TAMMY MYLES UNIT #: [id number] ROOM: [facility] DOCTOR: ACACIA GILMORE MD BIRTHDATE: [birth year] can be discharged to home today. Follow up with Dr. Casey and have a stress test as an outpatient. 3. Benign hypertension. The patient was hypotensive, the meds were held and the pressure has come back up, we will restart his home meds. ACACIA GILMORE MD CM:HISPHYS:PATIENT HISTORY AND PHYSICAL EXAMINATION 0739 [id number] ACACIA GILMORE MD 05/08/18 0737 interface
--- NOTE | ~2018-04-29 | EKG ---
[place], [place] ELECTROCARDIOGRAM REPORT NAME: TAMMY MYLES UNIT #: [id number] ROOM: 505 DOCTOR: MORALES HERNÁNDEZ MD BIRTHDATE: [birth year] DOS: 04/29/2018 TIME: 1541 hours. FININGS: 1. Normal sinus rhythm at 86 beats per minute. 2. The tracing is normal. 3. No significant change from an ECG done at 1237 hours of the same day. MORALES HERNÁNDEZ MD CM:EKGRPT:ELECTROCARDIOGRAM REPORT 0933 1316 MORALES HERNÁNDEZ MD
--- NOTE | ~2018-04-29 | EKG ---
[place], [place] ELECTROCARDIOGRAM REPORT NAME: TAMMY MYLES UNIT #: [id number] ROOM: 505 DOCTOR: MORALES HERNÁNDEZ MD BIRTHDATE: [birth year] DOS: 04/29/2018 TIME: 1237 hours. FINDINGS: 1. Normal sinus rhythm at 93 beats per minute. 2. The tracing is normal. 3. No previous tracing is available for comparison. MORALES HERNÁNDEZ MD CM:EKGRPT:ELECTROCARDIOGRAM REPORT 0933 1315 MORALES HERNÁNDEZ MD
[~2018-04-29 12:32] MED LIST changes: -CLOPIDOGREL75 MG PO; -CYCLOBENZAPRINE10 MG PO; -CYMBALTA20 M1 PO; -ISOSORBIDE MONO60 MG PO; -PROVENTIL HFA6.7 GM INH; -RANITIDINE 7575 MG PO
[2018-04-29 13:01] LABS: BASO % 0.5 % (0.0-1.0); EOS # 0.2 10*3/uL (0.0-0.4); EOS % 1.9 % (1.0-4.0); HEMATOCRIT 45.2 % (42.0-52.0); LYMPH # 2.6 10*3/uL (1.3-4.4); LYMPH % 30.9 % (27.0-41.0); MEAN CELL VOLUME 97.8 fl (80.0-94.0); MEAN CORPUSCULAR HGB 32.5 pg (27.0-31.0); MEAN CORPUSCULAR HGB CONC 33.2 g/dl (33.0-37.0); MEAN PLATELET VOLUME 10.1 fl (9.6-12.3); MONO # 0.6 10*3/uL (0.1-1.0); MONO % 6.7 % (3.0-9.0); NEUT # 4.9 10*3/uL (2.3-7.9); NEUT % 59.8 % (47.0-73.0); PLATELET COUNT AUTOMATED 180 10*3/uL (130-400); RED BLOOD COUNT 4.62 10*6/uL (4.50-5.90); RED CELL DISTRI WIDTH 13.7 % (0-14.5); WHITE BLOOD COUNT 8.3 10*3/uL (4.8-10.8)
[2018-04-29 13:11] LABS: ACT PARTIAL THROMBO TIME 25.3 SECONDS (20.8-31.5); INTERNATIONAL NORM RATIO 0.9 (2.0-3.5)
[2018-04-29 13:17] LABS: ALBUMIN 3.7 gm/dl (3.1-4.5); ALKALINE PHOSPHATASE 101 U/L (45-117); BUN 23 mg/dl (7-24); CHLORIDE 107 mmol/L (98-107); POTASSIUM 4.5 mmol/L (3.5-5.1); SODIUM 140 mmol/L (136-145); TOTAL PROTEIN 7.5 gm/dL (6.4-8.2)
[2018-04-29 13:19] LABS: CREATININE 1.35 mg/dL (0.70-1.30); SGOT/AST 12 IU/L (3-35); SGPT/ALT 24 U/L (12-78)
[2018-04-29 13:50] LABS: TROPONIN I < 0.015 ng/ml (<0.045)
[2018-04-29] MEDS ORDERED: CYCLOBENZAPRINE10 MG PO (14:20)
[2018-04-29] MEDS ORDERED: OMEPRAZOLE D/R20 MG PO (17:02)
[2018-04-29] MEDS ORDERED: ISOSORBIDE MONO60 MG PO (17:04)
[2018-04-29] MEDS ORDERED: CYMBALTA20 M1 PO (17:06)
[2018-04-29] MEDS ORDERED: CLOPIDOGREL75 MG PO (17:09)
[2018-04-29] MEDS ORDERED: PROVENTIL HFA6.7 GM INH (17:17)
[2018-04-29] MEDS ORDERED: REQUIP0.5 MG PO (17:17)
[2018-04-29] MEDS ORDERED: RANITIDINE 7575 MG PO (19:16)
[2018-04-30] VITALS: BP 146/83
[2018-04-30 06:51] LABS: CHLORIDE 109 mmol/L (98-107); CREATININE 1.03 mg/dL (0.70-1.30); POTASSIUM 4.8 mmol/L (3.5-5.1); SODIUM 140 mmol/L (136-145)
[2018-04-30 06:54] LABS: BUN 13 mg/dl (7-24)
[2018-04-30 07:32] LABS: BASO % 0.5 % (0.0-1.0); EOS # 0.1 10*3/uL (0.0-0.4); EOS % 1.9 % (1.0-4.0); HEMATOCRIT 43.9 % (42.0-52.0); HEMOGLOBIN 14.3 g/dl (14.0-18.0); LYMPH # 2.1 10*3/uL (1.3-4.4); MEAN CELL VOLUME 98.9 fl (80.0-94.0); MEAN CORPUSCULAR HGB 32.2 pg (27.0-31.0); MEAN CORPUSCULAR HGB CONC 32.6 g/dl (33.0-37.0); MONO # 0.7 10*3/uL (0.1-1.0); MONO % 8.9 % (3.0-9.0); NEUT # 4.5 10*3/uL (2.3-7.9); NEUT % 60.3 % (47.0-73.0); PLATELET COUNT AUTOMATED 148 10*3/uL (130-400); RED BLOOD COUNT 4.44 10*6/uL (4.50-5.90); RED CELL DISTRI WIDTH 13.4 % (0-14.5); WHITE BLOOD COUNT 7.5 10*3/uL (4.8-10.8)
[2018-04-30 08:00] VITALS: BP 124/76
== END 2018-04-30 09:30 | disposition home or self-care (01) | DRG 684 ==
LOC: ED 12:32 → EDHOLD 14:14 → 5E 14:14
PROVIDERS: Emergency Medicine; Internal Medicine
DX: N17.9 Acute kidney failure, unspecified (principal); I95.9 Hypotension, unspecified; I10 Essential (primary) hypertension; I25.10 Atherosclerotic heart disease of native coronary artery without angina pectoris; E11.9 Type 2 diabetes mellitus without complications; F10.20 Alcohol dependence, uncomplicated; F17.210 Nicotine dependence, cigarettes, uncomplicated; E86.0 Dehydration; Y90.9 Presence of alcohol in blood, level not specified; E78.2 Mixed hyperlipidemia; K21.9 Gastro-esophageal reflux disease without esophagitis; J44.9 Chronic obstructive pulmonary disease, unspecified; Z87.11 Personal history of peptic ulcer disease; Z79.82 Long term (current) use of aspirin; Z79.899 Other long term (current) drug therapy; Z95.818 Presence of other cardiac implants and grafts

== ENCOUNTER → 2018-05-06 | Emergency (ER) | payer OTHER ==
[~2018-05-06] VITALS: Ht 175.2 cm; Wt 90.7 kg
[~2018-05-06] MED LIST changes: +CLOPIDOGREL75 MG PO; +CYCLOBENZAPRINE10 MG PO; +CYMBALTA20 M1 PO; +ISOSORBIDE MONO60 MG PO; +PROVENTIL HFA6.7 GM INH; +RANITIDINE 7575 MG PO
[2018-05-06 13:59] VITALS: BP 152/87
== END ==
LOC: ED 13:58
DX: S99.821A Other specified injuries of right foot, initial encounter (principal); Z53.21 Procedure and treatment not carried out due to patient leaving prior to being seen by health care provider; W22.8XXA Striking against or struck by other objects, initial encounter; Y93.89 Activity, other specified; Y92.89 Other specified places as the place of occurrence of the external cause; Y99.9 Unspecified external cause status

== ENCOUNTER → 2018-05-06 | Outpatient (CLI) | payer OTHER | END | disposition home or self-care (01) | LOC: RAD 15:04 | DX: S99.921A Unspecified injury of right foot, initial encounter (principal); X58.XXXA Exposure to other specified factors, initial encounter; Y93.89 Activity, other specified; Y92.89 Other specified places as the place of occurrence of the external cause; Y99.8 Other external cause status ==

== ENCOUNTER 2018-08-11 20:16 | Inpatient (IN) | payer OTHER ==
[~2018-08-11] VITALS: Ht 170.1 cm; Wt 91.7 kg
--- NOTE | ~2018-08-11 | CON ---
[place], [place] REPORT OF CONSULTATION [id number] UNIT #: [id number] ROOM: 404 DOCTOR: MORALES HERNÁNDEZ MD BIRTHDATE: [birth year] DOS: 08/12/2018 HISTORY OF PRESENT ILLNESS: This is a 62-year-old -[place] man with a history of coronary artery disease. He presented to this hospital in November of last year with an exertional angina and was taken to [facility] where I performed a diagnostic heart catheterization. He had high-grade stenosis in the mid RCA and mid LAD. The LAD was stented with a 2.75 x 12 mm drug-eluting stent and the RCA was stented with a drug-eluting stent as well with 0% residual stenosis, LV function was normal. He has been reasonably well and had a normal stress Cardiolite study 2-3 months ago. He has diabetes mellitus, essential hypertension, COPD, major depression and had been smoking 2 packs of cigarettes per day and intervention was done last year, but now smokes 1 pack of cigarettes per day. He has hyperlipidemia and both of maternal aunt and grandmother had coronary artery disease. He came to the Emergency Department, was admitted because of anterior chest heaviness and pressure that lasted for about 10 hours. There is no radiation to the arm or neck. He did not have any sweating, nausea. Does not recall any exertional chest pain previously. He also tells me that his both hands become numb except for the little fingers. This wakes him up at night because the symptoms got worse along with some pain and discomfort in the arms. HOME MEDICATIONS: Include: Albuterol, Dulera, aspirin 81 a day, atorvastatin 20 daily, cholecalciferol 5000 units daily, clopidogrel 75 mg daily, cyclobenzaprine 10 mg t.i.d., duloxetine 20 mg daily, isosorbide mononitrate 60 q.a.m., meclizine 25 mg daily, metformin 1 g b.i.d., metoprolol 25 b.i.d., omega-3 fatty acids 1200 mg daily, ranitidine 75 mg b.i.d., and Requip 0.5 mg daily and tramadol 100 mg q.i.d. PHYSICAL EXAMINATION: GENERAL: The patient is moderately obese. He has opacity of the right cornea. His complexion is fine. There is no thyromegaly or finger clubbing. VITAL SIGNS: Pulse is 80 regular, blood pressure 122/70. NECK: Normal JVP. No bruit in the neck. HEART: There is no cardiomegaly. No murmurs are present. Excellent pedal pulses and no edema in lower extremities. RESPIRATORY: He is not tachypneic of breath. Percussion note is normal. Auscultation reveals reduced breath sounds with some adventitious sounds in both lungs. ABDOMEN: Large, supple, nontender. No bruit. Liver is not enlarged. DIAGNOSTIC STUDIES: ECG showed normal sinus rhythm and a normal pattern and troponin I levels are also normal. I had him walk briskly for 200 yards up and down the hallway and he had absolutely no symptoms. Heart rate went to 110 beats per minute. IMPRESSION: This patient with known coronary artery disease, had symptoms that [place], [place] REPORT OF CONSULTATION NAME: TAMMY MYLES UNIT #: [id number] ROOM: 404 DOCTOR: MORALES HERNÁNDEZ MD BIRTHDATE: [birth year] were of some concern. He has ruled out for an acute myocardial infarction and when I walked him briskly he had no symptoms. He may be discharged home. If symptoms recur, then please consider doing a Lexiscan Cardiolite study. I discussed his smoking habit with him as well. He also has the typical distribution of dysesthesia in keeping with bilateral carpal tunnel syndrome. Symptoms are rather persistent. I advised him to get wrist splints to wear as much as he can and that he probably need a surgery for this. MORALES HERNÁNDEZ MD CM:CONSTR:REPORT OF CONSULTATION 1129 08/26/18 0727 interface
--- NOTE | ~2018-08-11 | EKG ---
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
--- NOTE | ~2018-08-11 | EKG ---
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
--- NOTE | ~2018-08-11 | EKG ---
[place], [place] ELECTROCARDIOGRAM REPORT NAME: TAMMY MYLES UNIT #: [id number] ROOM: 404 DOCTOR: GITA DRAFT REPORT BIRTHDATE: [birth year] [facility] Test Date: 2018-08-12 Test Time: 02:27:59 Pat Name: TAMMY MYLES Department: Room: 404 Gender: M Sack Sorter: Mami Maya : 1955 Requested By: CLARISSA SIERRA Order Number: [id number] Reading MD: Alo Holman MD Measurements Intervals [place] Rate: 100 P: 66 DE: 165 QRS: 77 QRSD: 103 T: -1 QT: 342 QTc: 442 Interpretive Statements Sinus tachycardia Baseline wander in lead(s) V2 Electronically Signed On 08-13-2018 14:49:10 PDT by Alo Holman MD CM:EKGRPT:ELECTROCARDIOGRAM REPORT 0227 1449 CLARISSA COON DRAFT REPORT CLARISSA SIERRA DO
--- NOTE | ~2018-08-11 | WRIGHTHP ---
[place], [place] PATIENT HISTORY AND PHYSICAL EXAM NAME: TAMMY MYLES [facility] #: [id number] UNIT #: [id number] ROOM: 404 DOCTOR: ACACIA GILMORE MD BIRTHDATE: [birth year] DOS: 08/11/2018 HISTORY OF PRESENT ILLNESS: The patient is 62 years old patient of Dr. Gibsons, comes in with complaints of chest tightness. The patient states that he was at home, relaxing when he experienced some heaviness, did not have any radiation. He did not have any nausea, any emesis. Does not have any palpitations or shortness of breath. He was evaluated in the ER, was admitted. PAST MEDICAL HISTORY: Significant for: 1. Coronary artery disease with history of stent placement in 2017. 2. Benign hypertension. 3. Chronic neck and low back pain. 4. Moderate cigarette smoker. 5. History of alcohol dependence. 6. COPD. 7. Type 2 diabetes mellitus. 8. Gastroesophageal reflux disease. MEDICATIONS: His medications are ProAir HFA q.i.d., Dulera 200 twice a day, aspirin 81 daily, atorvastatin 20 daily, vitamin D 5000 units daily, Plavix 75 daily, cyclobenzaprine 10 t.i.d., duloxetine 20 daily, isosorbide 60 daily, meclizine 25 daily, metformin 1000 b.i.d., metoprolol 25 b.i.d., ranitidine 75 mg twice a day, Requip 0.5 mg at bedtime, and tramadol 100 q.i.d. SOCIAL HISTORY: Smoker of about half to 1 pack of cigarettes. Denies using any alcohol. PHYSICAL EXAMINATION: GENERAL: He is awake and alert and oriented. VITAL SIGNS: Graphic trend shows a pressure 140/81, pulse of 101, respirations 20, and temperature 97.9. LUNGS: Clear. HEART: Regular. ABDOMEN: Obese, soft, nontender. EXTREMITIES: Without any edema. ASSESSMENT AND PLAN: 1. Precordial chest pain, rule out myocardial infarction protocol was done, this so far has come back negative. Dr. Holman has been consulted. 2. Coronary artery disease with history of stent placement in 2017, had a stress test recently, so we will try to get a copy of the report from the office, since it was just done this year, I have no plans to repeat the stress test. 3. Moderate cigarette smoker, has used the Nicotrol patch this admission. [place], [place] PATIENT HISTORY AND PHYSICAL EXAM NAME: TAMMY MYLES UNIT #: [id number] ROOM: [facility] DOCTOR: ACACIA GILMORE MD BIRTHDATE: [birth year] ACACIA GILMORE MD CM:HISPHYS:PATIENT HISTORY AND PHYSICAL EXAMINATION 0757 0824 ACACIA GILMORE MD 08/12/18 0822 interface
[~2018-08-11 20:16] MED LIST changes: -TRAMADOL50 MG PO
[2018-08-11 20:20] VITALS: BP 142/85
[2018-08-11 20:34] LABS: BASO # 0.1 10*3/uL (0.0-0.1); BASO % 0.5 % (0.0-1.0); EOS # 0.1 10*3/uL (0.0-0.4); EOS % 1.2 % (1.0-4.0); HEMATOCRIT 42.8 % (42.0-52.0); HEMOGLOBIN 14.6 g/dl (14.0-18.0); LYMPH # 2.4 10*3/uL (1.3-4.4); LYMPH % 23.2 % (27.0-41.0); MEAN CELL VOLUME 97.7 fl (80.0-94.0); MEAN CORPUSCULAR HGB 33.3 pg (27.0-31.0); MEAN CORPUSCULAR HGB CONC 34.1 g/dl (33.0-37.0); MEAN PLATELET VOLUME 10.2 fl (9.6-12.3); MONO # 0.9 10*3/uL (0.1-1.0); MONO % 8.9 % (3.0-9.0); NEUT # 6.8 10*3/uL (2.3-7.9); NEUT % 65.9 % (47.0-73.0); PLATELET COUNT AUTOMATED 194 10*3/uL (130-400); RED BLOOD COUNT 4.38 10*6/uL (4.50-5.90); RED CELL DISTRI WIDTH 14.8 % (0-14.5); WHITE BLOOD COUNT 10.3 10*3/uL (4.8-10.8)
[2018-08-11 20:51] LABS: ALBUMIN 3.8 gm/dl (3.1-4.5); ALKALINE PHOSPHATASE 91 U/L (45-117); BUN 23 mg/dl (7-24); CHLORIDE 104 mmol/L (98-107); CREATININE 1.19 mg/dL (0.70-1.30); POTASSIUM 3.6 mmol/L (3.5-5.1); SGOT/AST 16 IU/L (3-35); SGPT/ALT 24 U/L (12-78); SODIUM 137 mmol/L (136-145); TOTAL PROTEIN 7.1 gm/dL (6.4-8.2)
[2018-08-11 20:55] LABS: TROPONIN I < 0.015 ng/ml (<0.045)
[2018-08-11 21:11] VITALS: BP 128/81
[2018-08-11 21:45] VITALS: BP 123/63
[2018-08-11 22:20] VITALS: BP 120/82
[2018-08-11 23:25] VITALS: BP 140/81
[2018-08-12] VITALS: BP 140/81
[2018-08-12 02:00] VITALS: BP 140/81
[2018-08-12 08:00] VITALS: BP 122/70
== END 2018-08-12 11:47 | disposition home or self-care (01) | DRG 313 ==
LOC: ED 20:16 → EDHOLD 21:48 → 4E 21:48
PROVIDERS: Student in an Organized Health Care Education/Training Program
PROC: 5A09357 Assistance with Respiratory Ventilation, Less than 24 Consecutive Hours, Continuous Positive Airway Pressure (ICD-10-PCS; principal; 2018-08-12)
DX: R07.9 Chest pain, unspecified (principal); I25.10 Atherosclerotic heart disease of native coronary artery without angina pectoris; J44.9 Chronic obstructive pulmonary disease, unspecified; I10 Essential (primary) hypertension; G89.29 Other chronic pain; M54.9 Dorsalgia, unspecified; M54.2 Cervicalgia; F17.210 Nicotine dependence, cigarettes, uncomplicated; K21.9 Gastro-esophageal reflux disease without esophagitis; E11.9 Type 2 diabetes mellitus without complications; E66.9 Obesity, unspecified; F32.9 Major depressive disorder, single episode, unspecified; E78.5 Hyperlipidemia, unspecified; G56.03 Carpal tunnel syndrome, bilateral upper limbs; Z95.5 Presence of coronary angioplasty implant and graft; Z88.8 Allergy status to other drugs, medicaments and biological substances; Z91.030 Bee allergy status; Z79.899 Other long term (current) drug therapy; Z79.82 Long term (current) use of aspirin; Z91.81 History of falling; Z82.49 Family history of ischemic heart disease and other diseases of the circulatory system; Z83.3 Family history of diabetes mellitus; Z82.3 Family history of stroke; Z68.31 Body mass index [BMI] 31.0-31.9, adult

== ENCOUNTER 2018-08-30 06:25 | Emergency (ER) | payer OTHER ==
[~2018-08-30] VITALS: Ht 175.2 cm; Wt 91.6 kg
[2018-08-30 06:26] VITALS: BP 109/71
[2018-08-30] MEDS ORDERED: ZESTRIL10 MG PO (06:30)
== END 2018-08-30 09:43 | disposition home or self-care (01) ==
LOC: ED 06:25
DX: T14.90XA Injury, unspecified, initial encounter (principal); M25.512 Pain in left shoulder; M54.2 Cervicalgia; J44.9 Chronic obstructive pulmonary disease, unspecified; Z91.030 Bee allergy status; Z88.8 Allergy status to other drugs, medicaments and biological substances; Z79.899 Other long term (current) drug therapy; Z79.82 Long term (current) use of aspirin; W10.8XXA Fall (on) (from) other stairs and steps, initial encounter; Y93.89 Activity, other specified; Y92.89 Other specified places as the place of occurrence of the external cause; Y99.8 Other external cause status

== ENCOUNTER 2018-11-11 09:08 | Inpatient (IN) | payer OTHER ==
[~2018-11-11] VITALS: Ht 170.2 cm; Wt 87.8 kg
--- NOTE | ~2018-11-11 | ST ---
[place], [place] EXERCISE STRESS TEST REPORT [id number] UN[facility] #: [id number] ROOM: 516 DOCTOR: ACACIA GILMORE MD BIRTHDATE: [birth year] DOS: 11/12/2018 STRESS TEST RESULT REASON FOR TESTING: Chest pain. PROCEDURE IN DETAIL: After explaining procedure and obtaining consent, the patient was subjected to Ricki protocol. His resting heart rate was 90 with a blood pressure 110/76. EKG showed sinus rhythm, nonspecific ST-T wave changes. He exercised for a period of 6 minutes and 3 seconds, completed 3 minutes of stage 2. The peak heart rate was 135, which is 85% of predicted. The peak blood pressure was 128/64. Once the peak heart rate was achieved, he was injected with Cardiolite and stress images were taken. ASSESSMENT AND PLAN: Exercise stress test without any ST-T wave changes or arrhythmias. The patient did have significant complaints of calf pain, most likely claudication bilaterally, so he will undergo arterial Dopplers awaiting the Cardiolite images to be read by Dr. Holman today. ACACIA GILMORE MD CM:STRESS:EXERCISE STRESS TEST REPORT [id number] 0345 ACACIA GILMORE MD
--- NOTE | ~2018-11-11 | WRIGHTHP ---
[place], [place] PATIENT HISTORY AND PHYSICAL EXAM NAME: TAMMY MYLES [facility] #: [id number] UNIT #: [id number] ROOM: 516 DOCTOR: ACACIA GILMORE MD BIRTHDATE: [birth year] DOS: 11/11/2018 HISTORY OF PRESENT ILLNESS: The patient is 63-year-old. 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 He stopped for a few minutes and the pain went away and when he went back to do his job his pain came back. This time he took 1 nitro that he had with him. The office called the ambulance and he was transported. During transportation he was given another 2 nitroglycerins and 3 aspirins. By the time he arrived at the hospital the pain was completely gone. He does not have any fever, any chills, any cough or shortness of breath. He did try to take a Proventil inhaler also when it happened. PAST MEDICAL HISTORY: Significant for: 1. Coronary artery disease with history of stent placement. 2. Hospitalization in 2017, with a negative stress test in May 2018. 3. Moderate cigarette smoker. 4. COPD. 5. Type 2 diabetes mellitus. 6. Major depression. MEDICATIONS: That he is on are Multiple, which include Proventil p.r.n., Dulera 2 puffs twice a day, aspirin 81 daily, atorvastatin 20 daily, vitamin D 5000 units daily, Plavix 75 daily, cyclobenzaprine 10 t.i.d., duloxetine 20 daily, isosorbide 60 daily, lisinopril/hydrochlorothiazide 1 tablet daily, meclizine 25 daily, metformin 500 b.i.d., metoprolol 25 b.i.d., nitroglycerin 0.4 p.r.n., omeprazole 20 daily, Requip 0.5 at bedtime, tramadol 100 q.i.d. SOCIAL HISTORY: Smoker of about half a pack of cigarettes a day. Denies using any alcohol. 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 PHYSICAL EXAMINATION: GENERAL: He is awake and alert and oriented. VITAL SIGNS: Graphic trend shows blood pressure of 97/53, pulse of 98, respirations 20, temperature 98.2. LUNGS: Diminished breath sounds, but clear. HEART: Regular. ABDOMEN: Obese, soft, nontender. EXTREMITIES: Without any edema. LABORATORY DATA: Lactic acid is 4.3, it came down to 2.9. Electrocardiogram shows sinus rhythm. ASSESSMENT AND PLAN: 1. The patient presents with angina, chest pain on work, relieved at rest, possibly from underlying coronary disease. He had a stress test in may 2018, which was negative, so we will ask Dr. Holman for an opinion. The patient is encouraged to quit smoking. 2. Elevated lactic acidosis, most likely from renal insufficiency and metformin. His renal insufficiency is most likely from underlying diuretics, which will be discontinued and slow IV hydration will be given. 3. Benign hypertension, pressure is actually on the low side, possibly again [place], [place] PATIENT HISTORY AND PHYSICAL EXAM NAME: TAMMY MYLES UNIT #: [id number] ROOM: [facility] DOCTOR: ACACIA GILMORE MD BIRTHDATE: [birth year] from prerenal azotemia and dehydration. 4. Moderate cigarette smoker with underlying chronic obstructive pulmonary disease. Chest x-ray was unremarkable. He continues to be on Dulera and Proventil, which are continued. ACACIA GILMORE MD CM:HISPHYS:PATIENT HISTORY AND PHYSICAL EXAMINATION 1417 164 ACACIA GILMORE MD 11/11/18 6614 interface
--- NOTE | ~2018-11-11 | EKG ---
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
--- NOTE | ~2018-11-11 | PR ---
[place], [place] PROGRESS NOTE NAME: TAMMY MYLES UNIT #: [id number] ROOM: 516 DOCTOR: KATYA FONTANEZ MD BIRTHDATE: [birth year] DOS: 11/12/2018 SUBJECTIVE: The patient was seen by Dr. Holman. The patient to undergo Lexiscan Cardiolite stress test today by Dr. Mayen. Cardiac enzymes have been normal. PHYSICAL EXAMINATION: VITAL SIGNS: Blood pressure is stable 140/80, sinus rhythm. NECK: Supple, no JVD. LUNGS: Diminished breath sounds. HEART: Sounds are regular. ABDOMEN: Soft, nontender. LABORATORY DATA: Hemoglobin 15, hematocrit 47. Electrolytes are normal. Lactic acid is elevated to 3.1. Troponins have all been negative. IMPRESSION: The patient with echocardiogram reviewed showed an ejection fraction well preserved, read by Dr. Holman. The patient admitted with chest discomfort with a history of coronary artery stent placement, moderate cigarette abuse, type 2 diabetes, COPD, hypertension. The patient will undergo stress test. Continue the present medication as ordered. Further action depends upon the stress test. KATYA FONTANEZ MD CM:PNTRANS 0718 1223 KATYA FONTANEZ MD 11/19/18 0900 interface
--- NOTE | ~2018-11-11 | PR ---
[place], [place] PROGRESS NOTE NAME: [facility]LES [id number] UNIT #: [id number] ROOM: 516 DOCTOR: ACACIA GILMORE MD BIRTHDATE: [birth year] DOS: 11/12/2018 SUBJECTIVE: The patient rested well, was seen by Dr. Holman who recommended a stress test. He does not have any complaints this morning. OBJECTIVE: VITAL SIGNS: Blood pressure is 146/81, pulse of 108, respirations 20, temperature 98.1. LUNGS: Clear. HEART: Regular. ABDOMEN: Soft. EXTREMITIES: Without any edema. ASSESSMENT AND PLAN: 1. Precordial pain in patient with known risk factors, ruled out for myocardial infarction. Awaiting stress test today. 2. Moderate cigarette smoker. Counseled. Patient declined any interventions. 3. Benign hypertension, controlled. 4. Lactic acidosis, possibly from diuretics as well as metformin. 5. Acute kidney injury. The kidney functions have improved after the IV fluids and hydrochlorothiazide were discontinued. We will continue holding off on hydrochlorothiazide right now. ACACIA GILMORE MD CM:PNTRANS 0841 0304 ACACIA GILMORE MD 11/13/18 0305 interface
--- NOTE | ~2018-11-11 | EKG ---
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
--- NOTE | ~2018-11-11 | CON ---
[place], [place] REPORT OF CONSULTATION NAME: TAMMY MYLES UNIT #: [id number] ROOM: 516 DOCTOR: MORALES HERNÁNDEZ MD BIRTHDATE: [birth year] DOS: 11/11/2018 HISTORY OF PRESENT ILLNESS: This is a 63-year-old -[place] man with a history of morbid obesity, essential hypertension and coronary artery disease. He had CAD due to diagnosed last year and at that time, I did intervention of LAD with a 2.75 x 12 mm drug-eluting stent and right coronary artery was also stented at that time, LV function was normal. He does have COPD, major depression and has never had a stroke or a heart attack. There is family history of coronary artery disease. He smokes half a pack of cigarettes per day. Before stents were deployed, he smoked 4 packs of cigarettes per day. 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 He took an inhaler, that pain a little different, then took 1 nitroglycerin sublingually with some benefit. 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 Ambulance was called and he was placed in the ambulance where he was given aspirin as well as sublingual nitroglycerin with some further relief of his symptoms. He has not had any dizziness or loss of consciousness, orthopnea or swelling of the lower extremities. Legs do not hurt when he walks. HOME MEDICATIONS: Include Proventil HFA, Dulera. He is also on aspirin 81 mg daily, clopidogrel 75 mg daily, cyclobenzaprine 10 mg t.i.d., isosorbide mononitrate 60 q.a.m., lisinopril/hydrochlorothiazide 10/12.5 mg daily, metformin 500 mg b.i.d., metoprolol tartrate 25 mg b.i.d., omega-3 fatty acids 1200 mg daily, omeprazole 20 daily, Requip 0.5 mg daily and tramadol 100 mg q.i.d. p.r.n. He takes atorvastatin 20 daily and vitamin D 5000 units. PHYSICAL EXAMINATION: GENERAL: This revealed the patient is moderately obese, very pleasant, alert, oriented, very comfortable. Complexion is normal. There is no cyanosis or jaundice. There is no thyromegaly or finger clubbing. VITAL SIGNS: Pulse is regular at 88 beats per minute, blood pressure 97/53. NECK: JVP is normal, no bruit in the neck. HEART: There is no cardiomegaly, no murmurs are present. EXTREMITIES: There is no edema in the lower extremity. Pedal pulses palpable. RESPIRATORY: Breath sounds are mildly diminished with some adventitious sounds. ABDOMEN: Somewhat large, but nontender. No bruit. DIAGNOSTIC DATA: ECG demonstrated normal sinus rhythm at 104 beats per minute and a normal pattern. Troponin I levels have been less than 0.015. IMPRESSION: This patient with coronary artery disease and stents in 2 coronary arteries, had symptoms that are of some concern. He is ruled out for an acute myocardial infarction. RECOMMENDATIONS: 1. Increase beta steve after the stress test. 2. Cardiolite study has been scheduled for tomorrow. If this shows any evidence of ischemia, then diagnostic heart cath will be performed. [place], [place] REPORT OF CONSULTATION NAME: TAMMY MYLES UNIT #: [id number] ROOM: 516 DOCTOR: MORALES HERNÁNDEZ MD BIRTHDATE: [birth year] Thank you for this consult. MORALES HERNÁNDEZ MD CM:CONSTR:REPORT OF CONSULTATION 1720 12/02/18 1025 interface ACACIA GILMORE MD
--- NOTE | ~2018-11-11 | EKG ---
[place], [place] ELECTROCARDIOGRAM REPORT NAME: TAMMY MYLES UNIT #: [id number] ROOM: 516 DOCTOR: GITA DRAFT REPORT BIRTHDATE: [birth year] [facility] Test Date: 2018-11-11 Test Time: 12:06:46 Pat Name: TAMMY MYLES Department: Room: 516 Gender: M Talent Assistant: Yuly Johnson : 1955 Requested By: LUCIA POLO Order Number: [id number] Reading MD: Alo Holman MD Measurements Intervals [place] Rate: 92 P: 48 CA: 161 QRS: 61 QRSD: 93 T: 51 QT: 328 QTc: 406 Interpretive Statements Sinus rhythm Baseline wander in lead(s) V4 Compared to ECG 08/12/2018 02:27:59 Myocardial infarct finding now present Sinus tachycardia no longer present Electronically Signed On 11-14-2018 23:55:32 PST by Alo Holman MD CM:EKGRPT:ELECTROCARDIOGRAM REPORT [id number] LUCIA COON DRAFT REPORT LUCIA POLO DO
[~2018-11-11 09:08] MED LIST changes: +ZESTRIL10 MG PO
[2018-11-11 09:11] VITALS: BP 97/60
[2018-11-11 09:21] LABS: BASO # 0.1 10*3/uL (0.0-0.1); BASO % 0.5 % (0.0-1.0); EOS # 0.1 10*3/uL (0.0-0.4); EOS % 0.7 % (1.0-4.0); HEMATOCRIT 48.4 % (42.0-52.0); HEMOGLOBIN 15.6 g/dl (14.0-18.0); LYMPH # 1.6 10*3/uL (1.3-4.4); LYMPH % 17.3 % (27.0-41.0); MEAN CELL VOLUME 100.2 fl (80.0-94.0); MEAN CORPUSCULAR HGB 32.3 pg (27.0-31.0); MEAN CORPUSCULAR HGB CONC 32.2 g/dl (33.0-37.0); MEAN PLATELET VOLUME 10.2 fl (9.6-12.3); MONO # 0.6 10*3/uL (0.1-1.0); MONO % 6.4 % (3.0-9.0); NEUT # 6.8 10*3/uL (2.3-7.9); NEUT % 74.7 % (47.0-73.0); PLATELET COUNT AUTOMATED 199 10*3/uL (130-400); RED BLOOD COUNT 4.83 10*6/uL (4.50-5.90); RED CELL DISTRI WIDTH 14.3 % (0-14.5); WHITE BLOOD COUNT 9.1 10*3/uL (4.8-10.8)
[2018-11-11 09:40] LABS: ALBUMIN 3.6 gm/dl (3.1-4.5); ALKALINE PHOSPHATASE 89 U/L (45-117); BUN 23 mg/dl (7-24); CHLORIDE 106 mmol/L (98-107); CREATININE 1.61 mg/dL (0.70-1.30); POTASSIUM 4.4 mmol/L (3.5-5.1); SGOT/AST 13 IU/L (3-35); SGPT/ALT 25 U/L (12-78); SODIUM 137 mmol/L (136-145); TOTAL PROTEIN 7.5 gm/dL (6.4-8.2)
[2018-11-11 09:45] LABS: ACT PARTIAL THROMBO TIME 24.4 SECONDS (20.8-31.5)
[2018-11-11 10:08] LABS: TROPONIN I < 0.015 ng/ml (<0.045)
[2018-11-11 11:24] VITALS: BP 97/53
--- NOTE | 2018-11-11 11:24 | NUR ---
A 63, admitted to 5E, under the services of ACACIA Valadez MD with a diagnosis of AC CP R/O SC. Chief complaint is CHEST PAIN. Patient arrived via bed from ER. Monitor applied. Initial assessment completed. Vital signs taken and recorded. ACACIA VALADEZ MD notified of admission to the unit. Orders received. See assessment for past medical history, medications and allergies. Patient and/or family oriented to unit. Clothing/patient valuable form completed. LATISHA DUNHAM
[2018-11-11] MEDS ORDERED: PRILOSEC20 M1 PO (11:43)
[2018-11-11] MEDS ORDERED: ZESTORETIC 10-1 EACH PO (11:46)
[2018-11-11] MEDS ORDERED: NITROSTAT0.4 MG PO (11:50)
[2018-11-11 12:00] VITALS: BP 97/53
--- NOTE | 2018-11-11 12:00 | NUR ---
ORDERS IN PLACE PER DR. GILMORE, INFORMED TO CONT. HOME MEDS AND CARDIAC DIET.
--- NOTE | 2018-11-11 13:50 | NUR ---
INFORMEED OF CONSULT. STATED HE WOULDBEIN TO SEE TODAY.
--- NOTE | 2018-11-11 15:37 | NUR ---
CALLED IN REGARDS TO LACTIC ACID. MESSAGE LEFT.
--- NOTE | 2018-11-11 15:42 | NUR ---
CALLED BACK, STATED NO NEW ORDERS.
[2018-11-11 16:00] VITALS: BP 109/66
--- NOTE | 2018-11-11 17:57 | NUR ---
STATED CARDIOLYTE NEED FOR MORNING, REQUESTING TO PERFORM STRESS TEST. STATED THAT WAS FINE.
--- NOTE | 2018-11-11 20:00 | NUR ---
RESTING IN BED VISITING WITH . RESPIRATIONS EASY. LUNGS DIMINISHED, CLEAR. PULSE OX 96% 2L. CLAIMS NON-PRODUCTIVE SMOKERS COUGH. OFFERED AND EDUCATED REGARDING TEDS, DECLINED. IV FLUIDS INFUSING PER ORDER. CALL LIGHT WITHIN REACH. NO VOICED COMPLAINTS.
[2018-11-11 21:17] VITALS: BP 117/67
[2018-11-12] VITALS: BP 146/81
--- NOTE | 2018-11-12 | NUR ---
SLEEPING. NO DISTRESS NOTED. RESPIRATIONS EASY. VSS. CALL LIGHT WITHIN REACH
--- NOTE | 2018-11-12 02:54 | NUR ---
24 HR chart check completed.
--- NOTE | 2018-11-12 06:00 | NUR ---
SLEPT THROUGHOUT NIGHT WITH NO DISTRESS NOTED. RESPIRATIONS EASY. IV FLUIDS INFUSING PER ORDER. NPO STATUS MAINTAINED FOR TESTING THIS AM. CALL LIGHT WITHIN REACH. NO VOICED COMPLAINTS THIS SHIFT
[2018-11-12 06:21] LABS: BASO # 0.1 10*3/uL (0.0-0.1); BASO % 0.5 % (0.0-1.0); EOS # 0.1 10*3/uL (0.0-0.4); EOS % 1.1 % (1.0-4.0); HEMOGLOBIN 15.2 g/dl (14.0-18.0); LYMPH # 1.7 10*3/uL (1.3-4.4); LYMPH % 15.9 % (27.0-41.0); MEAN CELL VOLUME 101.1 fl (80.0-94.0); MEAN CORPUSCULAR HGB 32.7 pg (27.0-31.0); MEAN CORPUSCULAR HGB CONC 32.3 g/dl (33.0-37.0); MEAN PLATELET VOLUME 10.4 fl (9.6-12.3); MONO # 0.7 10*3/uL (0.1-1.0); MONO % 6.4 % (3.0-9.0); NEUT # 7.9 10*3/uL (2.3-7.9); NEUT % 75.7 % (47.0-73.0); PLATELET COUNT AUTOMATED 205 10*3/uL (130-400); RED BLOOD COUNT 4.65 10*6/uL (4.50-5.90); RED CELL DISTRI WIDTH 14.6 % (0-14.5); WHITE BLOOD COUNT 10.4 10*3/uL (4.8-10.8)
[2018-11-12 06:55] LABS: BUN 16 mg/dl (7-24); CHLORIDE 105 mmol/L (98-107); CHOLESTEROL 85 mg/dL (<200); CREATININE 0.91 mg/dL (0.70-1.30); HDL CHOLESTEROL 35 mg/dl (40-60); LDL CHOLESTEROL 22 mg/dL (9-159); POTASSIUM 4.5 mmol/L (3.5-5.1); SODIUM 138 mmol/L (136-145); TRIGLYCERIDES 138 mg/dl (<150); VLDL CHOLESTEROL 28 mg/dL (6-40)
--- NOTE | 2018-11-12 07:25 | NUR ---
RESTING IN BED. RESP-EASY AND REGULAR. NO C/O AT THIS TIME. CALL LIGHT IN REACH. WAITING FOR STRESS TEST. SEE SHIFT ASSESSMENT.
--- NOTE | 2018-11-12 07:30 | NUR ---
OFF FLOOR FOR STRESS TEST.
[2018-11-12] MEDS ORDERED: LISINOPRIL20 MG PO (08:44)
--- NOTE | 2018-11-12 08:45 | NUR ---
INFORMED CONSENT SIGNED FOR CARDIOLYTE STRESS TEST WITH DR. GILMORE. RESTING EKG NSR, HR 98, BP 110/76. COMPLETED 6:03 OF A STANDARD JANEY PROTOCOL WITH STAGE II BEING HELD AND GRADE ELEVATED TO 13% FOR FINAL 1:30. TEST TERMINATED D/T FATIGUE. PEAK HEART RATE OF 135 ACHIEVED WHICH IS 85% PREDICTED MAXIMUM AND A PEAK BP OF 128/64. NO ARRHYTHMIAS OR ST CHANGES NOTED. HAS A FAIR EXERCISE TOLERANCE. PT C/O BILATERAL CALF PAIN DURING TEST. LAST RECOVERY HR 113, BP 128/84. WAITING NUCLEAR SCANNING IN STABLE CONDITION.
--- NOTE | 2018-11-12 09:00 | NUR ---
Towboat Pilot in to see patient. He is currently not in his room. He is in cardiac rehab having a stress test. Will follow up a later time.
--- NOTE | 2018-11-12 10:00 | NUR ---
PT IN ROOM FROM STRESS TEST. JTOLERATED ROUTINE EMDS WITH NO PROBLEM. NO C/O AT THIS TIME. CALL LIGHT IN REACH. IVF INFUSING WITH NO PROBLEM.
[2018-11-12 12:00] VITALS: BP 114/64
--- NOTE | 2018-11-12 12:00 | NUR ---
PT RESTING IN BED. NO C/O AT THIS TIME. CALL LIGHT IN REACH. NO C/O AT THIS TIME.
[2018-11-12 16:00] VITALS: BP 103/56
--- NOTE | 2018-11-12 16:00 | NUR ---
RESTING IN BED. NO C/O AT THIS TIME. CALL LIGHT IN REACH. SEE SHIFT ASSESSMNET.
--- NOTE | 2018-11-12 16:40 | NUR ---
SPOKE WITH DR. HERNÁNDEZ REGARDING STRESS TEST RESULTS AND PT GOING HOME. HE WILL LOOK AT IT AND CALL ME BACK.
--- NOTE | 2018-11-12 16:41 | NUR ---
CALLED DR. HERNÁNDEZ HE IS READING IT NOW AND WILL CALL ME BACK.
--- NOTE | 2018-11-12 17:56 | NUR ---
CALLED DR. HERNÁNDEZ AGAIN TO SEE IF HE LOOKED AT STRESS TEST. HE SAID WILL LOOK AT IT WHEN HE GETS HOME AND CALL ME.
--- NOTE | 2018-11-12 18:43 | NUR ---
[facility] ANSWERING SERVICE FOR DR. HERNÁNDEZ. THEY STATES HE ISN'T ANSWERING AT THIS TIME.
--- NOTE | 2018-11-12 18:44 | NUR ---
DR. HERNÁNDEZ CALLED BACK HE IS READING TEST NOW AND WILL CALL ME BACK.
--- NOTE | 2018-11-12 18:58 | NUR ---
DR. HERNÁNDEZ CALLED EF-75% AND NO ISCHEMIA. HE CAN GO HOME.
--- NOTE | 2018-11-12 19:11 | NUR ---
Discharge instructions reviewed with patient/family. Patient receptive and verbalizes understanding. Follow-up care arranged. Written instructions given to patient/family. HEPLOCK REMOVED. 2X2 APPLIED. LUIS M BARTH
--- NOTE | 2018-11-12 19:15 | NUR ---
PT AMBULATORY OFF THE FLOOR FOR DISCHARGE WITH AT HIS SIDE.
== END 2018-11-12 19:15 | disposition home or self-care (01) | DRG 303 ==
LOC: ED 09:08 → 5E 10:18 → EDHOLD 10:18 → 5E 10:39
PROVIDERS: Emergency Medicine; ADMIT Internal Medicine
PROC: 4A02XM4 Measurement of Cardiac Total Activity, External Approach (ICD-10-PCS; principal; 2018-11-12)
PROC: 3E073KZ Introduction of Other Diagnostic Substance into Coronary Artery, Percutaneous Approach (ICD-10-PCS; 2018-11-12)
DX: I25.119 Atherosclerotic heart disease of native coronary artery with unspecified angina pectoris (principal); N17.9 Acute kidney failure, unspecified; E87.2 Acidosis; I10 Essential (primary) hypertension; E11.9 Type 2 diabetes mellitus without complications; F17.210 Nicotine dependence, cigarettes, uncomplicated; J44.9 Chronic obstructive pulmonary disease, unspecified; E66.01 Morbid (severe) obesity due to excess calories; F32.9 Major depressive disorder, single episode, unspecified; Z91.030 Bee allergy status; Z88.8 Allergy status to other drugs, medicaments and biological substances; Z91.81 History of falling; Z82.49 Family history of ischemic heart disease and other diseases of the circulatory system; Z95.5 Presence of coronary angioplasty implant and graft; Z83.3 Family history of diabetes mellitus; Z82.3 Family history of stroke; Z71.6 Tobacco abuse counseling; Z68.30 Body mass index [BMI] 30.0-30.9, adult

== ENCOUNTER → 2018-12-17 | Outpatient (CLI) | payer OTHER ==
[~2018-12-17] MED LIST changes: +LISINOPRIL20 MG PO; +NITROSTAT0.4 MG PO; +PRILOSEC20 M1 PO; +ZESTORETIC 10-1 EACH PO
== END | disposition home or self-care (01) ==
LOC: RAD 12:06
DX: M48.02 Spinal stenosis, cervical region (principal); M19.011 Primary osteoarthritis, right shoulder; M54.12 Radiculopathy, cervical region

== ENCOUNTER → 2018-12-21 | Outpatient (CLI) | payer OTHER ==
[2018-12-21 15:06] LABS: BASO # 0.1 10*3/uL (0.0-0.1); BASO % 0.8 % (0.0-1.0); EOS # 0.2 10*3/uL (0.0-0.4); EOS % 2.1 % (1.0-4.0); HEMATOCRIT 46.9 % (42.0-52.0); HEMOGLOBIN 15.6 g/dl (14.0-18.0); LYMPH # 2.1 10*3/uL (1.3-4.4); LYMPH % 27.9 % (27.0-41.0); MEAN CELL VOLUME 99.8 fl (80.0-94.0); MEAN CORPUSCULAR HGB 33.2 pg (27.0-31.0); MEAN CORPUSCULAR HGB CONC 33.3 g/dl (33.0-37.0); MEAN PLATELET VOLUME 10.2 fl (9.6-12.3); MONO # 0.8 10*3/uL (0.1-1.0); NEUT # 4.4 10*3/uL (2.3-7.9); NEUT % 57.9 % (47.0-73.0); PLATELET COUNT AUTOMATED 202 10*3/uL (130-400); RED CELL DISTRI WIDTH 14.7 % (0-14.5); RETICULOCYTE % 1.56 % (0.50-2.50); WHITE BLOOD COUNT 7.5 10*3/uL (4.8-10.8)
[2018-12-21 15:13] LABS: URINE CREATININE RANDOM 79.7 mg/dL
[2018-12-21 15:36] LABS: ALBUMIN 3.8 gm/dl (3.1-4.5); ALKALINE PHOSPHATASE 92 U/L (45-117); BUN 15 mg/dl (7-24); CHLORIDE 105 mmol/L (98-107); CREATININE 0.98 mg/dL (0.70-1.30); IRON 133 ug/dL (65-175); PHOSPHOROUS 3.1 mg/dL (2.5-4.9); POTASSIUM 4.3 mmol/L (3.5-5.1); SGOT/AST 11 IU/L (3-35); SGPT/ALT 23 U/L (12-78); SODIUM 140 mmol/L (136-145); TOTAL IRON BINDING CAPACITY 363 ug/dl (250-450); TOTAL PROTEIN 7.4 gm/dL (6.4-8.2)
[2018-12-21 15:45] LABS: VITAMIN D, 25-HYDROXY 24.9 ng/mL (30-100)
[2018-12-21 15:46] LABS: FERRITIN 19.4 ng/mL (22.0-322.0); PTH INTACT 55.3 pg/mL (18.5-88.0)
== END | disposition home or self-care (01) ==
LOC: LAB 14:20
PROVIDERS: Internal Medicine Nephrology
DX: I12.9 Hypertensive chronic kidney disease with stage 1 through stage 4 chronic kidney disease, or unspecified chronic kidney disease (principal); N18.3 Chronic kidney disease, stage 3 (moderate); E11.22 Type 2 diabetes mellitus with diabetic chronic kidney disease; G47.33 Obstructive sleep apnea (adult) (pediatric); E66.9 Obesity, unspecified

== ENCOUNTER → 2019-04-10 | Outpatient (CLI) | payer OTHER | END | disposition home or self-care (01) | LOC: CT 10:00 | DX: R91.1 Solitary pulmonary nodule (principal) ==

== ENCOUNTER → 2019-12-15 | Outpatient (CLI) | payer OTHER ==
[~2019-12-15] MED LIST changes: +FLOMAX0.4 MG PO; +FLUTICASONE PROPIONA INH; +GOOD NEIGHBOR150 MG PO; +LISINOPRIL10 M1 PO; +NEURONTIN300 MG PO; +PERCOCET 5-3251 EACH PO; +VITAMIN D22000 UNIT PO; +ZANTAC 7575 M1 PO; +ZOCOR40 MG PO
[2019-12-15 12:09] LABS: BASO # 0.1 10*3/uL (0.0-0.1); BASO % 0.7 % (0.0-1.0); EOS # 0.1 10*3/uL (0.0-0.4); EOS % 1.3 % (1.0-4.0); HEMATOCRIT 47.6 % (42.0-52.0); HEMOGLOBIN 15.8 g/dl (14.0-18.0); LYMPH % 24.8 % (27.0-41.0); MEAN CELL VOLUME 101.1 fl (80.0-94.0); MEAN CORPUSCULAR HGB 33.5 pg (27.0-31.0); MEAN CORPUSCULAR HGB CONC 33.2 g/dl (33.0-37.0); MEAN PLATELET VOLUME 10.6 fl (9.6-12.3); MONO # 0.7 10*3/uL (0.1-1.0); MONO % 8.8 % (3.0-9.0); NEUT # 5.2 10*3/uL (2.3-7.9); NEUT % 64.2 % (47.0-73.0); PLATELET COUNT AUTOMATED 191 10*3/uL (130-400); RED BLOOD COUNT 4.71 10*6/uL (4.50-5.90); RED CELL DISTRI WIDTH 13.6 % (0-14.5); WHITE BLOOD COUNT 8.2 10*3/uL (4.8-10.8)
[2019-12-15 13:01] LABS: ALBUMIN 3.9 gm/dl (3.1-4.5); ALKALINE PHOSPHATASE 79 U/L (45-117); BUN 13 mg/dl (7-24); CHLORIDE 106 mmol/L (98-107); CHOLESTEROL 133 mg/dL (<200); CREATININE 1.09 mg/dL (0.70-1.30); SGOT/AST 13 IU/L (3-35); SGPT/ALT 27 U/L (12-78); SODIUM 136 mmol/L (136-145); TOTAL PROTEIN 7.3 gm/dL (6.4-8.2); TRIGLYCERIDES 237 mg/dl (<150); VLDL CHOLESTEROL 47 mg/dL (6-40)
[2019-12-15 13:07] LABS: FREE T4 1.01 ng/dl (0.76-1.46); HDL CHOLESTEROL 34 mg/dl (40-60); LDL CHOLESTEROL 52 mg/dL (9-159)
[2019-12-15 13:24] LABS: VITAMIN D, 25-HYDROXY 24.1 ng/mL (30-100)
== END | disposition home or self-care (01) ==
LOC: LAB 11:46
PROVIDERS: Internal Medicine
DX: Z12.5 Encounter for screening for malignant neoplasm of prostate (principal); I10 Essential (primary) hypertension; E78.2 Mixed hyperlipidemia; E11.9 Type 2 diabetes mellitus without complications; E55.9 Vitamin D deficiency, unspecified

== ENCOUNTER → 2019-12-17 | Day surgery (SDC) | payer OTHER ==
[~2019-12-17] VITALS: Ht 170.1 cm; Wt 93.0 kg
[2019-12-17 07:36] VITALS: BP 162/90
[2019-12-17 08:15] VITALS: BP 126/78
[2019-12-17 08:30] VITALS: BP 136/91
[2019-12-17 08:43] VITALS: BP 132/90
== END | disposition home or self-care (01) ==
LOC: SDC 12-12 09:30
DX: Z12.11 Encounter for screening for malignant neoplasm of colon (principal); D12.3 Benign neoplasm of transverse colon; I10 Essential (primary) hypertension; E11.9 Type 2 diabetes mellitus without complications; I25.10 Atherosclerotic heart disease of native coronary artery without angina pectoris; F32.9 Major depressive disorder, single episode, unspecified; J44.9 Chronic obstructive pulmonary disease, unspecified; F41.9 Anxiety disorder, unspecified; K21.9 Gastro-esophageal reflux disease without esophagitis; I25.2 Old myocardial infarction; Z88.0 Allergy status to penicillin; Z98.890 Other specified postprocedural states; Z79.899 Other long term (current) drug therapy; Z83.3 Family history of diabetes mellitus; Z82.49 Family history of ischemic heart disease and other diseases of the circulatory system; Z82.3 Family history of stroke

== ENCOUNTER → 2020-04-14 | Outpatient (CLI) | payer OTHER | END | disposition home or self-care (01) | LOC: CT 13:50 | DX: J43.9 Emphysema, unspecified (principal); R91.1 Solitary pulmonary nodule ==

== ENCOUNTER → 2021-01-27 | Outpatient (CLI) | payer OTHER ==
[2021-01-27 14:41] LABS: BASO # 0.1 10*3/uL (0.0-0.1); BASO % 0.6 % (0.0-1.0); EOS # 0.1 10*3/uL (0.0-0.4); EOS % 0.7 % (1.0-4.0); HEMATOCRIT 46.9 % (42.0-52.0); LYMPH # 2.2 10*3/uL (1.3-4.4); LYMPH % 25.6 % (27.0-41.0); MEAN CELL VOLUME 100.6 fl (80.0-94.0); MEAN CORPUSCULAR HGB 32.8 pg (27.0-31.0); MEAN CORPUSCULAR HGB CONC 32.6 g/dl (33.0-37.0); MEAN PLATELET VOLUME 10.5 fl (9.6-12.3); MONO # 0.6 10*3/uL (0.1-1.0); NEUT # 5.6 10*3/uL (2.3-7.9); NEUT % 65.9 % (47.0-73.0); PLATELET COUNT AUTOMATED 220 10*3/uL (130-400); RED BLOOD COUNT 4.66 10*6/uL (4.50-5.90); RED CELL DISTRI WIDTH 14.7 % (0-14.5); WHITE BLOOD COUNT 8.5 10*3/uL (4.8-10.8)
[2021-01-27 15:09] LABS: ALBUMIN 3.9 gm/dl (3.1-4.5); ALKALINE PHOSPHATASE 75 U/L (45-117); BUN 15 mg/dl (7-24); CHLORIDE 102 mmol/L (98-107); CHOLESTEROL 115 mg/dL (<200); CREATININE 1.23 mg/dL (0.70-1.30); FREE T4 1.01 ng/dl (0.76-1.46); HDL CHOLESTEROL 39 mg/dl (40-60); LDL CHOLESTEROL 25 mg/dL (9-159); POTASSIUM 4.3 mmol/L (3.5-5.1); SGOT/AST 21 IU/L (3-35); SGPT/ALT 45 U/L (12-78); SODIUM 136 mmol/L (136-145); TOTAL PROTEIN 7.7 gm/dL (6.4-8.2); TRIGLYCERIDES 255 mg/dl (<150); VLDL CHOLESTEROL 51 mg/dL (6-40)
[2021-01-27 15:15] LABS: VITAMIN D, 25-HYDROXY 56.7 ng/mL (30-100)
== END | disposition home or self-care (01) ==
LOC: LAB 14:04
PROVIDERS: ATTEND Internal Medicine
DX: Z12.5 Encounter for screening for malignant neoplasm of prostate (principal); I10 Essential (primary) hypertension; E11.9 Type 2 diabetes mellitus without complications; E78.2 Mixed hyperlipidemia; E55.9 Vitamin D deficiency, unspecified; Z00.01 Encounter for general adult medical examination with abnormal findings

== ENCOUNTER 2021-04-06 15:24 | Observation (INO) | payer OTHER ==
[~2021-04-06] VITALS: Ht 170.1 cm; Wt 90.3 kg
[2021-04-06 15:31] VITALS: BP 101/65
[2021-04-06 16:05] LABS: BASO # 0.1 10*3/uL (0.0-0.1); BASO % 0.6 % (0.0-1.0); EOS # 0.1 10*3/uL (0.0-0.4); EOS % 0.9 % (1.0-4.0); LYMPH # 2.2 10*3/uL (1.3-4.4); LYMPH % 20.4 % (27.0-41.0); MEAN CELL VOLUME 102.9 fl (80.0-94.0); MEAN CORPUSCULAR HGB 33.1 pg (27.0-31.0); MEAN CORPUSCULAR HGB CONC 32.2 g/dl (33.0-37.0); MEAN PLATELET VOLUME 11.1 fl (9.6-12.3); MONO # 0.9 10*3/uL (0.1-1.0); MONO % 8.5 % (3.0-9.0); NEUT # 7.5 10*3/uL (2.3-7.9); NEUT % 69.3 % (47.0-73.0); PLATELET COUNT AUTOMATED 191 10*3/uL (130-400); RED BLOOD COUNT 4.47 10*6/uL (4.50-5.90); RED CELL DISTRI WIDTH 14.5 % (0-14.5); WHITE BLOOD COUNT 10.9 10*3/uL (4.8-10.8)
[2021-04-06 16:20] LABS: BILIRUBIN Negative (Negative); BLOOD Negative (Negative); CLARITY Clear (Clear); COLOR Dark Yellow (Yellow); GLUCOSE Negative (Negative); KETONE Trace (Negative); LEUKO ESTERASE 1+ (Negative); NITRITE Negative (Negative); SPECIFIC GRAVITY >= 1.030 (1.001-1.030)
[2021-04-06 16:34] LABS: ALBUMIN 3.8 gm/dl (3.1-4.5); ALKALINE PHOSPHATASE 82 U/L (45-117); BUN 23 mg/dl (7-24); CHLORIDE 107 mmol/L (98-107); CREATININE 1.11 mg/dL (0.70-1.30); LIPASE 112 U/L (73-393); POTASSIUM 5.5 mmol/L (3.5-5.1); SGOT/AST 9 IU/L (3-35); SGPT/ALT 23 U/L (12-78); SODIUM 139 mmol/L (136-145); TOTAL PROTEIN 7.8 gm/dL (6.4-8.2)
[2021-04-06 16:41] LABS: TROPONIN I < 0.015 ng/ml (<0.045)
[2021-04-06 16:44] LABS: BACTERIA 1+; MUCOUS 1+; RBC 0-2 rbc/hpf (0-2)
[2021-04-06 19:30] VITALS: BP 120/68
[2021-04-06 20:30] VITALS: BP 132/86
[2021-04-06 21:10] VITALS: BP 125/75
[2021-04-06 21:30] VITALS: BP 126/70
[2021-04-06] MEDS ORDERED: PEPCID40 MG PO (22:21)
[2021-04-06] MEDS ORDERED: ISOSORBIDE DINI30 MG PO (22:21)
[2021-04-06] MEDS ORDERED: SIMVASTATIN40 MG PO (22:22)
[2021-04-06] MEDS ORDERED: LOPRESSOR25 MG PO (22:22)
[2021-04-06] MEDS ORDERED: ZOLOFT50 MG PO (22:23)
[2021-04-06] MEDS ORDERED: MELATONIN10 M2 PO (22:24)
[2021-04-06] MEDS ORDERED: VITAMIN C1000 M5 PO (22:24)
[2021-04-06] MEDS ORDERED: INDOMETHACIN ER75 M1 PO (23:00)
[2021-04-07] VITALS: BP 100/50
[2021-04-07 08:00] VITALS: BP 121/61
[2021-04-07 16:00] VITALS: BP 90/50
[2021-04-07 20:00] VITALS: BP 148/76
[2021-04-08] VITALS: BP 144/81
[2021-04-08 06:06] LABS: BASO # 0.1 10*3/uL (0.0-0.1); BASO % 0.7 % (0.0-1.0); EOS # 0.2 10*3/uL (0.0-0.4); EOS % 2.7 % (1.0-4.0); HEMATOCRIT 43.9 % (42.0-52.0); LYMPH # 2.3 10*3/uL (1.3-4.4); LYMPH % 33.7 % (27.0-41.0); MEAN CELL VOLUME 100.9 fl (80.0-94.0); MEAN CORPUSCULAR HGB 32.9 pg (27.0-31.0); MEAN CORPUSCULAR HGB CONC 32.6 g/dl (33.0-37.0); MEAN PLATELET VOLUME 10.9 fl (9.6-12.3); MONO # 0.6 10*3/uL (0.1-1.0); MONO % 8.6 % (3.0-9.0); NEUT # 3.7 10*3/uL (2.3-7.9); NEUT % 54.2 % (47.0-73.0); PLATELET COUNT AUTOMATED 177 10*3/uL (130-400); RED BLOOD COUNT 4.35 10*6/uL (4.50-5.90); RED CELL DISTRI WIDTH 13.8 % (0-14.5); WHITE BLOOD COUNT 6.8 10*3/uL (4.8-10.8)
[2021-04-08 06:29] LABS: BUN 18 mg/dl (7-24); CHLORIDE 112 mmol/L (98-107); CREATININE 0.95 mg/dL (0.70-1.30); SODIUM 138 mmol/L (136-145)
[2021-04-08 06:45] LABS: POTASSIUM 4.5 mmol/L (3.5-5.1)
[2021-04-08 08:00] VITALS: BP 136/64
[2021-04-08 16:00] VITALS: BP 131/75
[2021-04-08] MEDS ORDERED: AUGMENTIN 875-875 MG PO (18:09)
== END 2021-04-08 18:13 | disposition home or self-care (01) ==
LOC: ED 15:24 → 4E 18:32 → EDHOLD 18:32 → 4E 18:32
PROVIDERS: Emergency Medicine; ADMIT Internal Medicine; ATTEND Internal Medicine
DX: K57.32 Diverticulitis of large intestine without perforation or abscess without bleeding (principal); J44.9 Chronic obstructive pulmonary disease, unspecified; G25.81 Restless legs syndrome; I25.10 Atherosclerotic heart disease of native coronary artery without angina pectoris; I10 Essential (primary) hypertension; E78.2 Mixed hyperlipidemia; F32.9 Major depressive disorder, single episode, unspecified; E11.42 Type 2 diabetes mellitus with diabetic polyneuropathy; N40.0 Benign prostatic hyperplasia without lower urinary tract symptoms; R79.89 Other specified abnormal findings of blood chemistry; F17.210 Nicotine dependence, cigarettes, uncomplicated; Z79.899 Other long term (current) drug therapy

== ENCOUNTER → 2021-04-18 | Outpatient (CLI) | payer OTHER ==
[~2021-04-18] MED LIST changes: +AUGMENTIN 875-875 MG PO; +INDOMETHACIN ER75 M1 PO; +ISOSORBIDE DINI30 MG PO; +LOPRESSOR25 MG PO; +MELATONIN10 M2 PO; +PEPCID40 MG PO; +SIMVASTATIN40 MG PO; +VITAMIN C1000 M5 PO
== END | disposition home or self-care (01) ==
LOC: CT 10:54
PROVIDERS: ATTEND Internal Medicine Critical Care Medicine
DX: J43.2 Centrilobular emphysema (principal); R91.1 Solitary pulmonary nodule

== ENCOUNTER → 2021-10-04 | Outpatient (CLI) | payer OTHER, MEDICAID ==
[2021-10-04 14:51] LABS: BASO # 0.1 10*3/uL (0.0-0.1); BASO % 0.9 % (0.0-1.0); EOS # 0.1 10*3/uL (0.0-0.4); EOS % 1.4 % (1.0-4.0); HEMATOCRIT 43.4 % (42.0-52.0); LYMPH # 2.1 10*3/uL (1.3-4.4); LYMPH % 24.2 % (27.0-41.0); MEAN CELL VOLUME 100.7 fl (80.0-94.0); MEAN CORPUSCULAR HGB 33.4 pg (27.0-31.0); MEAN CORPUSCULAR HGB CONC 33.2 g/dl (33.0-37.0); MEAN PLATELET VOLUME 10.4 fl (9.6-12.3); MONO # 0.7 10*3/uL (0.1-1.0); MONO % 8.3 % (3.0-9.0); NEUT # 5.5 10*3/uL (2.3-7.9); PLATELET COUNT AUTOMATED 189 10*3/uL (130-400); RED BLOOD COUNT 4.31 10*6/uL (4.50-5.90); RED CELL DISTRI WIDTH 13.4 % (0-14.5); WHITE BLOOD COUNT 8.5 10*3/uL (4.8-10.8)
[2021-10-04 15:08] LABS: ALBUMIN 3.6 gm/dl (3.1-4.5); ALKALINE PHOSPHATASE 70 U/L (45-117); BUN 15 mg/dl (7-24); CHLORIDE 107 mmol/L (98-107); CHOLESTEROL 90 mg/dL (<200); CREATININE 1.08 mg/dL (0.70-1.30); FREE T4 0.87 ng/dl (0.76-1.46); LDL CHOLESTEROL 9 mg/dL (9-159); POTASSIUM 5.1 mmol/L (3.5-5.1); SGOT/AST 15 IU/L (3-35); SGPT/ALT 32 U/L (12-78); SODIUM 136 mmol/L (136-145); TOTAL PROTEIN 7.4 gm/dL (6.4-8.2); TRIGLYCERIDES 212 mg/dl (<150)
[2021-10-04 16:37] LABS: VITAMIN D, 25-HYDROXY 46.2 ng/mL (30-100)
== END | disposition home or self-care (01) ==
LOC: LAB 14:26
PROVIDERS: ATTEND Internal Medicine
DX: Z13.0 Encounter for screening for diseases of the blood and blood-forming organs and certain disorders involving the immune mechanism (principal); Z13.1 Encounter for screening for diabetes mellitus; Z13.21 Encounter for screening for nutritional disorder; Z13.220 Encounter for screening for lipoid disorders; Z13.228 Encounter for screening for other metabolic disorders; Z13.6 Encounter for screening for cardiovascular disorders; Z13.89 Encounter for screening for other disorder; R53.81 Other malaise; M50.323 Other cervical disc degeneration at C6-C7 level; R79.89 Other specified abnormal findings of blood chemistry; E55.9 Vitamin D deficiency, unspecified; D51.9 Vitamin B12 deficiency anemia, unspecified; E03.9 Hypothyroidism, unspecified; D52.9 Folate deficiency anemia, unspecified

== ENCOUNTER 2024-12-25 16:18 | Inpatient (IN) | payer MEDICARE ==
[2024-12-25] VITALS (21 sets, daily range): BP systolic 100–129; BP diastolic 44–93
[~2024-12-25] VITALS: Ht 170.2 cm; Wt 90.4 kg
[2024-12-25] MEDS ORDERED: SODIUM CHLORIDE 0.9% 1,000 ML IV ONE (16:30)
[2024-12-25] MEDS ORDERED: Metoprolol Tartrate 5 MG/5 ML VIAL IV ONE (16:45)
[2024-12-25 16:55] LABS: BASO % 0.5 % (0.0-1.0); EOS # 0.1 10*3/uL (0.0-0.4); EOS % 1.1 % (1.0-4.0); HEMATOCRIT 48.8 % (42.0-52.0); MEAN CORPUSCULAR HGB 30.3 pg (27.0-31.0); MEAN CORPUSCULAR HGB CONC 32.2 g/dl (33.0-37.0); MEAN PLATELET VOLUME 10.5 fl (9.6-12.3); MONO # 0.6 10*3/uL (0.1-1.0); MONO % 7.1 % (3.0-9.0); NEUT # 5.6 10*3/uL (2.3-7.9); NEUT % 71.4 % (47.0-73.0); PLATELET COUNT AUTOMATED 199 10*3/uL (130-400); RED BLOOD COUNT 5.19 10*6/uL (4.50-5.90); RED CELL DISTRI WIDTH 16.8 % (0-14.5); WHITE BLOOD COUNT 7.9 10*3/uL (4.8-10.8)
[2024-12-25 17:06] LABS: ACT PARTIAL THROMBO TIME 29.4 SECONDS (20.0-32.1)
[2024-12-25 17:20] LABS: ALKALINE PHOSPHATASE 92 U/L (46-116); BUN 21 mg/dl (9-23); CHLORIDE 104 mmol/L (98-107); POTASSIUM 4.4 mmol/L (3.4-5.1); SGPT/ALT 14 U/L (5-49); TOTAL PROTEIN 6.9 gm/dL (6.0-8.0)
[2024-12-25] MEDS ORDERED: dilTIAZem Hydrochloride 100 ML IV ONE (18:05)
[2024-12-25] MEDS ORDERED: dilTIAZem Hydrochloride 25 MG/5 ML VIAL IV ONE (20:25)
[2024-12-25] MEDS ORDERED: ACETAMINOPHEN 325 MG TAB PO PRN (20:55)
[2024-12-25] MEDS ORDERED: TEMAZEPAM 15 MG CAP PO PRN (20:55)
[2024-12-25] MEDS ORDERED: BISACODYL 10 MG SUPP R PRN (20:55)
[2024-12-25] MEDS ORDERED: MORPHINE Sulfate 2 MG/ML SYR IV PRN (20:55)
[2024-12-25] MEDS ORDERED: Ondansetron Hydrochloride 4 MG/2 ML VIAL IV PRN (20:55)
[2024-12-25] MEDS ORDERED: Magnesium Hydroxide 30 ML UDC PO PRN (20:55)
[2024-12-25] MEDS ORDERED: BISACODYL 5 MG TAB PO PRN (20:55)
[2024-12-25] MEDS ORDERED: ACETAMINOPHEN 650 MG SUPP R PRN (20:55)
[2024-12-25] MEDS ORDERED: Acetaminophen/Hydrocodone 5 MG/325 MG TABLET PO PRN (20:55)
[2024-12-25] MEDS ORDERED: METOPROLOL SUCCINATE XR 25 MG TAB PO ONE (21:35)
[2024-12-25] MEDS ORDERED: DEXTROSE 10 % IN WATER 250 ML IV PRN (22:30)
[2024-12-26] VITALS (10 sets, daily range): BP systolic 93–132; BP diastolic 53–85
[2024-12-26] MEDS ORDERED: PRAMIPEXOLE DIHY1 MG PO (00:52)
[2024-12-26] MEDS ORDERED: BUDESONIDE-FO10.2 G1 INH (00:53)
[2024-12-26] MEDS ORDERED: ENTRESTO 24 MG1 EACH PO (00:54)
[2024-12-26] MEDS ORDERED: ALDACTONE25 MG PO (00:54)
[2024-12-26] MEDS ORDERED: CYCLOBENZAPRINE10 MG PO (00:54)
[2024-12-26] MEDS ORDERED: TOPROL XL25 MG PO (00:55)
[2024-12-26] MEDS ORDERED: [UNRECOGNIZED DRUG - OTHER] PO (00:55)
[2024-12-26] MEDS ORDERED: VITAMIN D350 MCG PO (00:56)
[2024-12-26] MEDS ORDERED: ASPIRIN ADULT L81 M1 PO (00:56)
[2024-12-26] MEDS ORDERED: JARDIANCE10 MG PO (00:57)
[2024-12-26] MEDS ORDERED: GLIPIZIDE XL10 M1 PO (00:57)
[2024-12-26] MEDS ORDERED: VENT7GM INH (00:57)
[2024-12-26] MEDS ORDERED: METFORMIN HYDR500 MG PO (00:58)
[2024-12-26] MEDS ORDERED: XARELTO20 M1 PO (00:58)
[2024-12-26] MEDS ORDERED: TRULICITY0.75 MG/0. SC (00:59)
[2024-12-26] MEDS ORDERED: Albuterol Sulfate 2.5 MG/3 ML VIAL NEB PRN (01:05)
[2024-12-26] MEDS ORDERED: Cyclobenzaprine Hydrochlorid 10 MG TAB PO PRN (01:05)
[2024-12-26] MEDS ORDERED: BUDESONIDE 0.5 MG AMP NEB SCH (01:15)
[2024-12-26] MEDS ORDERED: Albuterol Sulfate 2.5 MG/3 ML VIAL NEB SCH (01:15)
[2024-12-26] MEDS ORDERED: dilTIAZem Hydrochloride 25 MG/5 ML VIAL IV ONE (06:25)
[2024-12-26 06:30] LABS: BASO % 0.7 % (0.0-1.0); EOS # 0.1 10*3/uL (0.0-0.4); EOS % 1.9 % (1.0-4.0); HEMATOCRIT 48.2 % (42.0-52.0); MEAN CELL VOLUME 94.7 fl (80.0-94.0); MEAN CORPUSCULAR HGB 30.1 pg (27.0-31.0); MEAN CORPUSCULAR HGB CONC 31.7 g/dl (33.0-37.0); MEAN PLATELET VOLUME 10.3 fl (9.6-12.3); MONO # 0.6 10*3/uL (0.1-1.0); NEUT # 3.1 10*3/uL (2.3-7.9); NEUT % 53.4 % (47.0-73.0); PLATELET COUNT AUTOMATED 170 10*3/uL (130-400); RED BLOOD COUNT 5.09 10*6/uL (4.50-5.90); RED CELL DISTRI WIDTH 17.1 % (0-14.5); WHITE BLOOD COUNT 5.8 10*3/uL (4.8-10.8)
[2024-12-26 07:03] LABS: BUN 20 mg/dl (9-23); CHLORIDE 107 mmol/L (98-107); CHOLESTEROL 138 mg/dL (<200); FREE T4 1.23 ng/dl (0.89-1.76); LDL CHOLESTEROL 51 mg/dL (9-159); POTASSIUM 3.9 mmol/L (3.4-5.1); TRIGLYCERIDES 289 mg/dl (<150)
[2024-12-26] MEDS ORDERED: INSULIN LISPRO 1 UNIT/0.01 ML SQ SCH (07:30)
[2024-12-26 07:31] LABS: VITAMIN D, 25-HYDROXY 66.9 ng/mL (30-100)
[2024-12-26] MEDS ORDERED: Nicotine 21 MG PATCH T SCH (10:00)
[2024-12-26] MEDS ORDERED: ASPIRIN, CHEWABLE 81 MG TAB PO SCH (10:00)
[2024-12-26] MEDS ORDERED: Cholecalciferol 2,000 UNIT TABLET (50 MCG) PO SCH (10:00)
[2024-12-26] MEDS ORDERED: EMPAGLIFLOZIN 10 MG TABLET PO SCH (10:00)
[2024-12-26] MEDS ORDERED: METOPROLOL SUCCINATE XR 25 MG TAB PO SCH (10:00)
[2024-12-26] MEDS ORDERED: DULoxetine Hydrochloride 60 MG CAP PO SCH (10:00)
[2024-12-26] MEDS ORDERED: Budesonide/Formoterol Fumarate 160/4.5 inhaler INH SCH (10:00)
[2024-12-26] MEDS ORDERED: SACUBITRIL/VALSARTAN 24 MG-26 MG TABLET PO SCH (10:00)
[2024-12-26] MEDS ORDERED: SPIRONOLACTONE 25 MG TAB PO SCH (10:00)
[2024-12-26] MEDS ORDERED: Tamsulosin Hydrochloride 0.4 MG CAP PO SCH (10:00)
[2024-12-26] MEDS ORDERED: Sotalol Hydrochloride 80 MG TAB PO SCH (10:00)
[2024-12-26] MEDS ORDERED: PERFLUTREN PROTEIN-A MICROSPHR 3 ML VIAL IV ONE (13:40)
[2024-12-26] MEDS ORDERED: RIVAROXABAN 20 MG TAB PO SCH (22:00)
[2024-12-26] MEDS ORDERED: Pramipexole Dihydrochloride 0.5 MG TAB PO SCH (22:00)
[2024-12-26] MEDS ORDERED: SIMVASTATIN 20 MG TAB PO SCH (22:00)
[2024-12-26] MEDS ORDERED: DILTIAZEM IV ONE (22:05)
[2024-12-27] VITALS (9 sets, daily range): BP systolic 80–116; BP diastolic 53–80
[2024-12-27] MEDS ORDERED: Amiodarone Hydrochloride 150 MG,IV 1 EA in DEXTROSE 5% 100 ML IV ONE (00:30)
[2024-12-27] MEDS ORDERED: Amiodarone Hydrochloride 150 MG/3 ML VIAL IV ONE ×2 (01:02→01:12)
[2024-12-27] MEDS ORDERED: SODIUM CHLORIDE 0.9% 500 ML IV ONE (02:10)
[2024-12-27 05:53] LABS: BUN 20 mg/dl (9-23); CHLORIDE 105 mmol/L (98-107); POTASSIUM 4.1 mmol/L (3.4-5.1)
[2024-12-27 06:16] LABS: BASO # 0.1 10*3/uL (0.0-0.1); BASO % 0.6 % (0.0-1.0); EOS # 0.1 10*3/uL (0.0-0.4); EOS % 1.5 % (1.0-4.0); HEMATOCRIT 50.3 % (42.0-52.0); MEAN CELL VOLUME 93.1 fl (80.0-94.0); MEAN CORPUSCULAR HGB 30.9 pg (27.0-31.0); MEAN CORPUSCULAR HGB CONC 33.2 g/dl (33.0-37.0); MEAN PLATELET VOLUME 10.7 fl (9.6-12.3); MONO # 0.8 10*3/uL (0.1-1.0); MONO % 10.2 % (3.0-9.0); PLATELET COUNT AUTOMATED 177 10*3/uL (130-400); RED CELL DISTRI WIDTH 17.2 % (0-14.5); WHITE BLOOD COUNT 8.2 10*3/uL (4.8-10.8)
[2024-12-27] MEDS ORDERED: DEXTROSE 5% IV ONE (07:33)
[2024-12-27] MEDS ORDERED: Phenylephrine Hydrochloride 250 ML IV SCH (07:35)
[2024-12-27] MEDS ORDERED: Amiodarone Hydrochloride 900 MG in DEXTROSE 5% 500 ML IV SCH (09:00)
[2024-12-27 14:07] LABS: HEMOGOLBIN A1C 14.6 % (4.8-5.6)
[2024-12-27] MEDS ORDERED: DIGOXIN 500 MCG/2 ML AMP IV ONE (20:55)
[2024-12-28] VITALS: BP 122/84
[2024-12-28 04:00] VITALS: BP 105/63
[2024-12-28] MEDS ORDERED: DIGOXIN 500 MCG/2 ML AMP IV SCH (04:00)
[2024-12-28 05:03] LABS: BUN 22 mg/dl (9-23); CHLORIDE 103 mmol/L (98-107); POTASSIUM 4.6 mmol/L (3.4-5.1)
[2024-12-28 06:09] LABS: BASO # 0.1 10*3/uL (0.0-0.1); BASO % 0.6 % (0.0-1.0); EOS # 0.1 10*3/uL (0.0-0.4); EOS % 1.2 % (1.0-4.0); HEMATOCRIT 50.9 % (42.0-52.0); MEAN CELL VOLUME 93.7 fl (80.0-94.0); MEAN CORPUSCULAR HGB 30.6 pg (27.0-31.0); MEAN CORPUSCULAR HGB CONC 32.6 g/dl (33.0-37.0); MEAN PLATELET VOLUME 10.6 fl (9.6-12.3); MONO # 1.1 10*3/uL (0.1-1.0); NEUT # 8.5 10*3/uL (2.3-7.9); NEUT % 71.4 % (47.0-73.0); PLATELET COUNT AUTOMATED 222 10*3/uL (130-400); RED BLOOD COUNT 5.43 10*6/uL (4.50-5.90); RED CELL DISTRI WIDTH 17.2 % (0-14.5); WHITE BLOOD COUNT 11.9 10*3/uL (4.8-10.8)
[2024-12-28 08:00] VITALS: BP 110/65
[2024-12-28] MEDS ORDERED: DIGOXIN 500 MCG/2 ML AMP IV ONE (08:00)
[2024-12-28 12:00] VITALS: BP 116/76
[2024-12-28] MEDS ORDERED: Metoprolol Tartrate 5 MG/5 ML VIAL IV SCH (12:00)
[2024-12-28 16:00] VITALS: BP 107/72
[2024-12-28 20:00] VITALS: BP 109/87
[2024-12-28] MEDS ORDERED: Metoprolol Tartrate 5 MG/5 ML VIAL IV ONE (22:10)
[2024-12-29] VITALS (7 sets, daily range): BP systolic 93–99; BP diastolic 48–60
[2024-12-29 05:21] LABS: BUN 20 mg/dl (9-23); CHLORIDE 103 mmol/L (98-107); POTASSIUM 4.4 mmol/L (3.4-5.1)
[2024-12-29 06:35] LABS: BASO # 0.1 10*3/uL (0.0-0.1); BASO % 0.6 % (0.0-1.0); EOS # 0.2 10*3/uL (0.0-0.4); EOS % 1.5 % (1.0-4.0); HEMATOCRIT 54.3 % (42.0-52.0); MEAN CORPUSCULAR HGB 30.8 pg (27.0-31.0); MEAN CORPUSCULAR HGB CONC 32.2 g/dl (33.0-37.0); MEAN PLATELET VOLUME 10.8 fl (9.6-12.3); MONO # 1.3 10*3/uL (0.1-1.0); MONO % 12.5 % (3.0-9.0); NEUT # 6.6 10*3/uL (2.3-7.9); NEUT % 65.8 % (47.0-73.0); PLATELET COUNT AUTOMATED 183 10*3/uL (130-400); RED BLOOD COUNT 5.69 10*6/uL (4.50-5.90); RED CELL DISTRI WIDTH 18.2 % (0-14.5)
[2024-12-29 06:36] LABS: MEAN CELL VOLUME 95.4 fl (80.0-94.0)
[2024-12-29] MEDS ORDERED: Amiodarone Hydrochloride 200 MG TAB PO SCH (11:40)
[2024-12-29] MEDS ORDERED: SACUBITRIL/VALSARTAN 24 MG-26 MG TABLET PO SCH (22:00)
[2024-12-30] VITALS: BP 113/69
[2024-12-30 04:00] VITALS: BP 98/54
[2024-12-30 05:23] LABS: CHLORIDE 100 mmol/L (98-107); POTASSIUM 4.5 mmol/L (3.4-5.1)
[2024-12-30 05:46] LABS: BUN 30 mg/dl (9-23)
[2024-12-30 06:01] LABS: BASO # 0.1 10*3/uL (0.0-0.1); BASO % 0.5 % (0.0-1.0); EOS # 0.1 10*3/uL (0.0-0.4); EOS % 1.3 % (1.0-4.0); HEMATOCRIT 49.7 % (42.0-52.0); MEAN CELL VOLUME 94.8 fl (80.0-94.0); MEAN CORPUSCULAR HGB 30.3 pg (27.0-31.0); MEAN PLATELET VOLUME 10.2 fl (9.6-12.3); MONO # 1.3 10*3/uL (0.1-1.0); MONO % 13.8 % (3.0-9.0); NEUT # 5.9 10*3/uL (2.3-7.9); NEUT % 60.8 % (47.0-73.0); PLATELET COUNT AUTOMATED 190 10*3/uL (130-400); RED BLOOD COUNT 5.24 10*6/uL (4.50-5.90); WHITE BLOOD COUNT 9.7 10*3/uL (4.8-10.8)
[2024-12-30 08:00] VITALS: BP 119/77
[2024-12-30] MEDS ORDERED: Metoprolol Tartrate 5 MG/5 ML VIAL IV PRN (08:55)
[2024-12-30 12:00] VITALS: BP 85/55
[2024-12-30] MEDS ORDERED: DIGOXIN 500 MCG/2 ML AMP IV SCH (12:00)
[2024-12-30] MEDS ORDERED: DIGOXIN 125 MCG TAB PO SCH (14:00)
[2024-12-30 16:00] VITALS: BP 112/70
[2024-12-30 20:00] VITALS: BP 123/71
[2024-12-30] MEDS ORDERED: METOPROLOL SUCCINATE XR 50 MG TAB PO SCH (22:00)
[2024-12-31] VITALS: BP 111/68
[2024-12-31 04:30] LABS: BASO % 0.5 % (0.0-1.0); EOS # 0.1 10*3/uL (0.0-0.4); EOS % 1.5 % (1.0-4.0); HEMATOCRIT 47.5 % (42.0-52.0); MEAN CELL VOLUME 94.6 fl (80.0-94.0); MEAN CORPUSCULAR HGB 30.3 pg (27.0-31.0); MEAN PLATELET VOLUME 10.1 fl (9.6-12.3); MONO % 12.8 % (3.0-9.0); NEUT # 4.7 10*3/uL (2.3-7.9); NEUT % 59.3 % (47.0-73.0); PLATELET COUNT AUTOMATED 199 10*3/uL (130-400); RED BLOOD COUNT 5.02 10*6/uL (4.50-5.90); WHITE BLOOD COUNT 7.8 10*3/uL (4.8-10.8)
[2024-12-31 04:54] LABS: BUN 28 mg/dl (9-23); CHLORIDE 103 mmol/L (98-107); DIGOXIN 1.14 ng/ml (0.8-2.0); POTASSIUM 4.1 mmol/L (3.4-5.1)
[2024-12-31 08:00] VITALS: BP 110/66
[2024-12-31 12:00] VITALS: BP 110/66
[2024-12-31] MEDS ORDERED: DIGOXIN 125 MCG TAB PO SCH (14:00)
[2024-12-31 16:00] VITALS: BP 103/65
[2024-12-31 20:00] VITALS: BP 114/76
[2025-01-01] VITALS: BP 115/72
[2025-01-01 08:00] VITALS: BP 134/78; BP 152/93
[2025-01-01] MEDS ORDERED: Albuterol Sulfate 2.5 MG/3 ML VIAL NEB PRN (08:10)
[2025-01-01] MEDS ORDERED: METFORMIN HYD1000 MG PO (11:27)
[2025-01-01] MEDS ORDERED: AMIODARONE HYD200 MG PO (11:27)
[2025-01-01] MEDS ORDERED: ENTRESTO 24 MG1 EACH PO (11:27)
[2025-01-01] MEDS ORDERED: DIGOXIN125 MCG PO (11:27)
[2025-01-01] MEDS ORDERED: METOPROLOL SUCC50 M1 PO (11:27)
[2025-01-01] MEDS ORDERED: RESTORIL15 MG PO (11:27)
[2025-01-01 12:00] VITALS: BP 132/82
[2025-01-01] MEDS ORDERED: DEXTROSE 10 % IN WATER 250 ML IV PRN (14:15)
[2025-01-01 16:00] VITALS: BP 129/79
[2025-01-01] MEDS ORDERED: INSULIN LISPRO 1 UNIT/0.01 ML SQ SCH (16:30)
[2025-01-01 20:00] VITALS: BP 113/72
[2025-01-01] MEDS ORDERED: TEMAZEPAM 15 MG CAP PO PRN (22:00)
[2025-01-02] VITALS: BP 103/67
[2025-01-03] MEDS ORDERED: Amiodarone Hydrochloride 200 MG TAB PO SCH (10:00)
== END 2025-01-02 06:45 | disposition short-term general hospital (02) | DRG 309 ==
LOC: ED 16:18 → ICCU 20:08 → 4E 20:08 → EDHOLD 20:08 → 4E 22:21 → ICCU 12-27 00:45 → 4E 12-31 11:35
PROVIDERS: Internal Medicine; Internal Medicine Cardiovascular Disease; Student in an Organized Health Care Education/Training Program; ADMIT Family Medicine; ATTEND Family Medicine
DX: I48.19 Other persistent atrial fibrillation (principal); E87.20 Acidosis, unspecified; I50.22 Chronic systolic (congestive) heart failure; I48.92 Unspecified atrial flutter; I25.10 Atherosclerotic heart disease of native coronary artery without angina pectoris; I11.0 Hypertensive heart disease with heart failure; J44.9 Chronic obstructive pulmonary disease, unspecified; K21.9 Gastro-esophageal reflux disease without esophagitis; E78.2 Mixed hyperlipidemia; E11.51 Type 2 diabetes mellitus with diabetic peripheral angiopathy without gangrene; E11.65 Type 2 diabetes mellitus with hyperglycemia; F17.210 Nicotine dependence, cigarettes, uncomplicated; J43.9 Emphysema, unspecified; I42.9 Cardiomyopathy, unspecified; G47.33 Obstructive sleep apnea (adult) (pediatric); Z88.8 Allergy status to other drugs, medicaments and biological substances; Z91.09 Other allergy status, other than to drugs and biological substances; Z79.899 Other long term (current) drug therapy; Z79.01 Long term (current) use of anticoagulants; Z79.2 Long term (current) use of antibiotics; Z71.6 Tobacco abuse counseling; Z79.82 Long term (current) use of aspirin; Z82.49 Family history of ischemic heart disease and other diseases of the circulatory system; Z83.3 Family history of diabetes mellitus; Z82.3 Family history of stroke

== ENCOUNTER → 2025-03-30 | Outpatient (CLI) | payer MEDICARE ==
[~2025-03-30] MED LIST changes: +ALDACTONE25 MG PO; +AMIODARONE HYD200 MG PO; +ASPIRIN ADULT L81 M1 PO; +BUDESONIDE-FO10.2 G1 INH; +DIGOXIN125 MCG PO; +ENTRESTO 24 MG1 EACH PO; +GLIPIZIDE XL10 M1 PO; +JARDIANCE10 MG PO; +METFORMIN HYD1000 MG PO; +METFORMIN HYDR500 MG PO; +METOPROLOL SUCC50 M1 PO; +PRAMIPEXOLE DIHY1 MG PO; +RESTORIL15 MG PO; +TOPROL XL25 MG PO; +TRULICITY0.75 MG/0. SC; +VENT7GM INH; +VITAMIN D350 MCG PO; +XARELTO20 M1 PO; +[UNRECOGNIZED DRUG - OTHER] PO
[2025-03-30 18:53] LABS: BASO % 0.5 % (0.0-1.0); EOS # 0.1 10*3/uL (0.0-0.4); EOS % 1.2 % (1.0-4.0); HEMATOCRIT 51.2 % (42.0-52.0); MEAN CELL VOLUME 100.4 fl (80.0-94.0); MEAN CORPUSCULAR HGB 33.1 pg (27.0-31.0); MEAN PLATELET VOLUME 11.3 fl (9.6-12.3); MONO # 0.6 10*3/uL (0.1-1.0); MONO % 7.6 % (3.0-9.0); NEUT % 73.9 % (47.0-73.0); PLATELET COUNT AUTOMATED 210 10*3/uL (130-400); RED CELL DISTRI WIDTH 14.3 % (0-14.5); WHITE BLOOD COUNT 8.2 10*3/uL (4.8-10.8)
[2025-03-30 19:21] LABS: ALKALINE PHOSPHATASE 110 U/L (46-116); BUN 19 mg/dl (9-23); CHLORIDE 98 mmol/L (98-107); DIGOXIN 0.54 ng/ml (0.8-2.0); POTASSIUM 3.8 mmol/L (3.4-5.1); SGPT/ALT 36 U/L (5-49); TOTAL PROTEIN 7.3 gm/dL (6.0-8.0)
== END | disposition home or self-care (01) ==
LOC: LAB 17:57
PROVIDERS: ATTEND Nurse Practitioner Family
DX: I10 Essential (primary) hypertension (principal); E11.9 Type 2 diabetes mellitus without complications; J44.9 Chronic obstructive pulmonary disease, unspecified; M51.362 Other intervertebral disc degeneration, lumbar region with discogenic back pain and lower extremity pain; R39.15 Urgency of urination; I48.20 Chronic atrial fibrillation, unspecified; Z12.5 Encounter for screening for malignant neoplasm of prostate

== ENCOUNTER 2025-09-20 14:01 | Emergency (ER) | payer MEDICARE ==
[~2025-09-20] VITALS: Ht 172.7 cm; Wt 81.6 kg
[2025-09-20 14:05] VITALS: BP 159/89
[2025-09-20 14:23] LABS: BASO # 0.0 10*3/uL (0.0-0.1); BASO % 0.5 % (0.0-1.0); EOS # 0.1 10*3/uL (0.0-0.4); EOS % 1.2 % (1.0-4.0); MEAN CELL VOLUME 100.0 fl (80.0-94.0); MEAN CORPUSCULAR HGB 32.7 pg (27.0-31.0); MEAN PLATELET VOLUME 10.1 fl (9.6-12.3); MONO # 0.6 10*3/uL (0.1-1.0); MONO % 8.3 % (3.0-9.0); NEUT # 5.2 10*3/uL (2.3-7.9); NEUT % 67.3 % (47.0-73.0); NUCLEATED RED BLOOD CELL 0.0 % (0.0-0.0); NUCLEATED RED BLOOD CELL 0.0 10*3/uL (0.0-0.0); PLATELET COUNT AUTOMATED 202 10*3/uL (130-400); RED CELL DISTRI WIDTH 13.8 % (0-14.5)
[2025-09-20 14:57] LABS: BUN 13 mg/dl (9-23)
== END 2025-09-20 15:20 | disposition left against medical advice (07) ==
LOC: ED 14:01
PROVIDERS: Nurse Practitioner Family
DX: R07.89 Other chest pain (principal); F12.90 Cannabis use, unspecified, uncomplicated; I48.91 Unspecified atrial fibrillation; I25.10 Atherosclerotic heart disease of native coronary artery without angina pectoris; J44.9 Chronic obstructive pulmonary disease, unspecified; K21.9 Gastro-esophageal reflux disease without esophagitis; E78.2 Mixed hyperlipidemia; E11.9 Type 2 diabetes mellitus without complications; G47.00 Insomnia, unspecified; F32.A Depression, unspecified; G47.30 Sleep apnea, unspecified; Z91.030 Bee allergy status; Z88.1 Allergy status to other antibiotic agents; Z98.890 Other specified postprocedural states; Z87.442 Personal history of urinary calculi; Z53.29 Procedure and treatment not carried out because of patient's decision for other reasons